=== PATIENT | male | born 1930 | race Caucasian/White ===

== ENCOUNTER 2017-01-04 20:22 | Inpatient (IN) | payer MEDICARE, BC ==
--- NOTE | 2017-01-04 20:52 | EDM.PDOC ---
ED HPI GENERAL MEDICAL PROBLEM - General Chief Complaint: General Stated Complaint: AM Time Seen by Provider: 01/04/17 20:35 Source of Information: Reports: Patient, EMS, prison records History Limitations: Reports: No limitations - History of Present Illness INITIAL COMMENTS - FREE TEXT/NARRATIVE: This 86 yo male patient was brought to the ED by [facility] due to a low blood pressure (66/44), increased shortness of breath (oxygen saturation was 90% on 5 lpm) and increased weakness. The patient reports his weakness and shortness of breath seems to have gotten worse yesterday. According to the ambulance, the patient's family wanted the patient to be brought to the ED. Onset: gradual Duration: Day(s): (2), Constant, Getting worse Location: Reports: chest (shortness of breath), generalized Quality: Reports: Other Severity: moderate Improves with: Reports: None Worsens with: Reports: None Associated Symptoms: Reports: shortness of breath, weakness Treatments CHEF'S ASSISTANT: Reports: Breathing treatments (by EMS enroute to hospital) Right Knee Pain Score (Numeric/FACES): 4 - Related Data Allergies Allergy/AdvReac Type Severity Reaction Status Date / Time roflumilast [From [facility]] Allergy Cannot Verified 01/04/17 20:31 Remember theophylline Allergy Cannot Verified 01/04/17 20:31 Remember Home Meds: Home Meds Albuterol [Ventolin HFA] 2 puff INH Q4H PRN 04/27/14 [History] Budesonide [Pulmicort] 0.5 mg IH BID 04/27/14 [History] Cholecalciferol (Vitamin D3) [Vitamin D3] 1,000 units PO DAILY 04/27/14 [History ] Formoterol [Perforomist] 20 mcg NEB BID 04/27/14 [History] Gabapentin [Neurontin] 300 mg PO BEDTIME 04/27/14 [History] Multivitamin [Multivitamins] 1 each PO DAILY 04/27/14 [History] Nitroglycerin [Nitrostat] 0.4 mg SL ASDIRECTED PRN 04/27/14 [History] Simvastatin [Zocor] 40 mg PO BEDTIME 04/27/14 [History] Acetaminophen [Tylenol] 650 mg PO Q4HR PRN 04/05/15 [History] Aspirin [Ecotrin] 81 mg PO DAILY 04/05/15 [History] Ferrous Sulfate 325 mg PO WITHBREAKFAST 04/05/15 [History] Pantoprazole [Protonix] 40 mg PO ACBREAKFAST 04/05/15 [History] Furosemide 40 mg PO BID 10/20/16 [History] Glimepiride 1 mg PO WITHBREAKFAST 10/20/16 [History] Albuterol/Ipratropium [DuoNeb 3.0-0.5 MG/3 ML] 3 ml NEB QIDRT PRN #120 neb 12/08 [Rx] Escitalopram [Lexapro] 10 mg PO DAILY #30 tablet 12/08/16 [Rx] Lisinopril [Prinivil] 5 mg PO DAILY #30 tablet 12/08/16 [Rx] Glucagon HCl 1 mg IM ASDIRECTED PRN 12/11/16 [History] Magnesium Hydroxide [Milk of Magnesia] 10 ml PO DAILY PRN 12/11/16 [History] Potassium Chloride [Klor-Con 10] 10 meq PO TID 12/11/16 [History] Insulin Aspart [NovoLOG] 8 unit SUBCUT TIDAC #1 pen 12/15/16 [Rx] Insulin Detemir [Levemir] 15 unit SUBCUT BEDTIME #1 pen 12/15/16 [Rx] LORazepam [Ativan] 0.5 mg PO ASDIRECTED PRN 01/04/17 [History] predniSONE [Prednisone] 5 mg PO DAILY 01/04/17 [History] Past Medical History HEENT History: Reports: Hard of hearing, Impaired vision Other HEENT History: wears glasses Cardiovascular History: Reports: CAD, Heart Failure, High cholesterol, Hypertension Respiratory History: Reports: Asthma, COPD Gastrointestinal History: Reports: GERD, GI bleed Genitourinary History: Reports: BPH, Prostate disorder Other Genitourinary History: has indwelling catheter Musculoskeletal History: Reports: Osteoarthritis Neurological History: Reports: Neuropathy, peripheral Psychiatric History: Reports: None Endocrine/Metabolic History: Reports: Diabetes, type II, Obesity/BMI 30+ Hematologic History: Reports: Anemia Immunologic History: Reports: None Oncologic (Cancer) History: Reports: Prostate Dermatologic History: Reports: None - Infectious Disease History Infectious Disease History: Reports: Chicken pox, Measles, Mumps - Past Surgical History Head Surgeries/Procedures: Reports: None Male Surgical History: Reports: TURP-Transurethral resection of prostate Musculoskeletal Surgical History: Reports: Hip replacement, Shoulder surgery Other Musculoskeletal Surgeries/Procedures:: 2 new hips Social & Family History - Family History Family Medical History: Noncontributory - Tobacco Use Smoking Status *Q: Former Smoker Years of Tobacco use: 40 Packs/Tins Daily: 1 Used Tobacco, but Quit: Yes Month Tobacco Last Used: November Second Hand Smoke Exposure: No - Caffeine Use Caffeine Use: Reports: Coffee Other Caffeine Use: 2 or more - Alcohol Use Days Per Week of Alcohol Use: 1 Number of Drinks Per Day: 1 Total Drinks Per Week: 1 - Recreational Drug Use Recreational Drug Use: No - Living Situation & Occupation Living situation: Reports: , alone Occupation: retired ED ROS GENERAL - Review of Systems Review Of Systems: ROS reveals no pertinent complaints other than HPI. ED EXAM, GENERAL - Physical Exam Exam: See Below Exam Limited By: No limitations General Appearance: alert, WD/WN, moderate distress Eye Exam: bilateral eye: EOMI, normal inspection, PERRL Ears: normal external exam, normal canal, hearing grossly normal, normal TMs Nose: normal inspection, normal mucosa, no blood Throat/Mouth: Normal inspection, Normal lips, Normal teeth, Normal gums, Normal oropharynx, Normal voice, No airway compromise Head: atraumatic, normocephalic Neck: normal inspection, supple, non-tender, full range of motion Respiratory/Chest: decreased breath sounds, rhonchi (diffuse) Cardiovascular: normal peripheral pulses, regular rate, rhythm, no edema, no gallop, no JVD, no murmur, no rub GI/Abdominal: normal bowel sounds, soft, non tender, no organomegaly, no distention, no abnormal bruit, no mass (Male) Exam: Deferred Rectal (Males) Exam: Deferred Back Exam: normal inspection, full range of motion, NT Extremities: normal inspection, normal range of motion, non-tender, normal capillary refill, no pedal edema Neurological: alert, oriented, CN II-XII intact, normal cognition, normal gait, normal reflexes, no motor/sensory deficits Psychiatric: normal affect, normal mood Skin Exam: Warm, Dry, Intact, Normal color, No rash Lymphatic: no adenopathy Course - Vital Signs Last Recorded V/S: Last Vital Signs Temp 36.3 C 01/04/17 20:23 Pulse 96 01/04/17 21:19 Resp 20 01/04/17 21:19 BP 88/44 L 01/04/17 21:19 Pulse Ox 92 L 01/04/17 21:19 - Orders/Labs/Meds Orders: Active Orders 24 hr Category Date Time Status CBC WITH AUTO DIFF [HEME] Stat Lab 01/04/17 20:45 Results CULTURE BLOOD [BC] Stat Lab 01/04/17 20:45 Received CULTURE BLOOD [BC] Stat Lab 01/04/17 21:01 Ordered MANUAL DIFFERENTIAL QA/NC [HEME] Stat Lab 01/04/17 20:45 Results Levofloxacin/Dextrose 5%-Water [Levaquin in D5W 500 MG/ Med 01/04/17 21:20 Ordered 100 ML] 500 mg Premix Bag 1 bag IV ONETIME Piperacillin/Tazobactam [Zosyn] 3.375 gm Med 01/04/17 21:20 Ordered Sodium Chloride 0.9% [Normal Saline] 100 ml IV ONETIME Vancomycin 1.5 gm Med 01/04/17 21:20 Ordered Sodium Chloride 0.9% [Normal Saline] 500 ml IV ONETIME Labs: Laboratory Tests 01/04/17 01/04/17 01/04/17 Range/Units 20:45 20:45 20:45 WBC 16.2 H (5.0-10.0) 10^3/uL RBC 3.62 L (4.6-6.2) 10^6/uL Hgb 9.8 L (14.0-18.0) g/dL Hct 32.6 L (40.0-54.0) % MCV 90.1 (80-100) fL MCH 27.1 (27.0-34.0) pg MCHC 30.1 L (33.0-35.0) g/dL Plt Count 276 (150-450) 10^3/uL Neut % (Auto) 76.7 H (42.2-75.2) % Lymph % (Auto) 17.0 L (20.5-50.1) % [place] % (Auto) 6.1 (2-8) % Eos % (Auto) 0.1 L (1.0-3.0) % Baso % (Auto) 0.1 (0.0-1.0) % Add Manual Diff Yes Sodium 136 (135-145) mmol/L Potassium 4.5 (3.6-5.0) mmol/L Chloride 95 L (101-111) mmol/L Carbon Dioxide 33.0 H (21.0-31.0) mmol/L Anion Gap 12.5 BUN 42 H (7-18) mg/dL Creatinine 1.4 H (0.6-1.3) mg/dL Est Cr Clr Drug Dosing TNP Estimated GFR (MDRD) 48 BUN/Creatinine Ratio 30.00 Glucose 107 H (74-105) mg/dL Lactic Acid 1.9 (0.5-2.2) mmol/L Calcium 8.8 (8.4-10.2) mg/dl Total Bilirubin 0.5 (0.2-1.0) mg/dL AST 39 (10-42) IU/L ALT 30 (10-60) IU/L Alkaline Phosphatase 74 (42-121) IU/L Total Protein 6.6 L (6.7-8.2) g/dl Albumin 2.4 L (3.2-5.5) g/dl Globulin 4.2 Albumin/Globulin Ratio 0.57 Departure - Departure Time of Disposition: 21:23 Disposition: Admitted As Inpatient 64 Condition: serious Clinical Impression: Pneumonia Qualifiers: Pneumonia type: due to unspecified organism Laterality: bilateral Lung location : lower lobe of lung Qualified Code(s): J18.9 - Pneumonia, unspecified organism Forms: ED Department Discharge Care Plan Goals: Discussed the examination, history, lab and x-ray results with Dr. Banegas ( Hospitalist). Dr. Banegas accepted the patient for continued evaluation and management as an acute inpatient at [facility] in [place]. - My Orders Last 24 Hours: My Active Orders 01/04/17 20:45 CBC WITH AUTO DIFF [HEME] Stat CULTURE BLOOD [BC] Stat MANUAL DIFFERENTIAL QA/NC [HEME] Stat 01/04/17 21:01 CULTURE BLOOD [BC] Stat 01/04/17 21:20 Levofloxacin/Dextrose 5%-Water [Levaquin in D5W 500 MG/100 ML] 500 mg Premix Bag 1 bag IV ONETIME Piperacillin/Tazobactam [Zosyn] 3.375 gm Sodium Chloride 0.9% [Normal Saline] 100 ml IV ONETIME Vancomycin 1.5 gm Sodium Chloride 0.9% [Normal Saline] 500 ml IV ONETIME - Assessment/Plan Last 24 Hours: My Active Orders 01/04/17 20:45 CBC WITH AUTO DIFF [HEME] Stat CULTURE BLOOD [BC] Stat MANUAL DIFFERENTIAL QA/NC [HEME] Stat 01/04/17 21:01 CULTURE BLOOD [BC] Stat 01/04/17 21:20 Levofloxacin/Dextrose 5%-Water [Levaquin in D5W 500 MG/100 ML] 500 mg Premix Bag 1 bag IV ONETIME Piperacillin/Tazobactam [Zosyn] 3.375 gm Sodium Chloride 0.9% [Normal Saline] 100 ml IV ONETIME Vancomycin 1.5 gm Sodium Chloride 0.9% [Normal Saline] 500 ml IV ONETIME
[2017-01-04 21:12] LABS: CHLORIDE,CL 95 mmol/L (101-111); SODIUM,NA 136 mmol/L (135-145)
[2017-01-04] MEDS ORDERED: Piperacillin/Tazobactam 3.375 GM in Sodium Chloride 0.9% 100 ML IV ONE (21:20)
[2017-01-04] MEDS ORDERED: Levofloxacin/Dextrose 5%-Water 500 MG in Premix Bag 1 BAG IV ONE (21:20)
[2017-01-04] MEDS ORDERED: Vancomycin 1.5 GM in Sodium Chloride 0.9% 500 ML IV ONE (21:20)
[2017-01-04] MEDS ORDERED: Docusate Sodium 100 MG Cap PO PRN (22:11)
[2017-01-04] MEDS ORDERED: Ondansetron 4 MG Tab.DIS PO PRN (22:11)
[2017-01-04] MEDS ORDERED: Ondansetron 4 MG/2 ML SDV IVPUSH PRN (22:11)
[2017-01-04] MEDS ORDERED: Zolpidem 5 MG Tab PO PRN (22:11)
[2017-01-04] MEDS ORDERED: Sodium Chloride 0.9% 500 ML IV SCH (22:30)
[2017-01-04] MEDS ORDERED: Albumin 25% 12.5 GM/50 ML BAG IV ONE (22:42)
--- NOTE | 2017-01-04 22:48 | PCM.HP ---
H&P History of Present Illness - General Date of Service: 01/04/17 Admit Problem/Dx: Admission Diagnosis/Problem Admission Diagnosis/Problem Hypotension, acute on chronic hypoxemic respiratory failure Source of Information: Patient, Family (son), Other ([facility] [employer]) - History of Present Illness Initial Comments - Free Text/Narative: the patient is an 86-year-old gentleman with a history of COPD, chronic hypoxemic respiratory failure, home oxygen and steroid therapy, CHF, recurrent pleural effusion, recurrent pneumonia. [facility]. [facility] and today he was noted to require higher doses of oxygen to keep his saturations above 90%, noted to have severe hypotension. The patient was brought into the hospital emergency room. He is complaining of cough, sputum production, chest pain with cough. No fever, no chills. No diarrhea, has chronic Pichardo catheter. Normal abdominal pain, Right Knee Pain Score (Numeric/FACES): 4 - Related Data Allergies/Adverse Reactions: Allergies Allergy/AdvReac Type Severity Reaction Status Date / Time roflumilast [From [facility]] Allergy Cannot Verified 01/04/17 20:31 Remember theophylline Allergy Cannot Verified 01/04/17 20:31 Remember Home Medications: Home Meds Albuterol [Ventolin HFA] 2 puff INH Q4H PRN 04/27/14 [History] Budesonide [Pulmicort] 0.5 mg IH BID 04/27/14 [History] Cholecalciferol (Vitamin D3) [Vitamin D3] 1,000 units PO DAILY 04/27/14 [History ] Formoterol [Perforomist] 20 mcg NEB BID 04/27/14 [History] Gabapentin [Neurontin] 300 mg PO BEDTIME 04/27/14 [History] Multivitamin [Multivitamins] 1 each PO DAILY 04/27/14 [History] Nitroglycerin [Nitrostat] 0.4 mg SL ASDIRECTED PRN 04/27/14 [History] Simvastatin [Zocor] 40 mg PO BEDTIME 04/27/14 [History] Acetaminophen [Tylenol] 650 mg PO Q4HR PRN 04/05/15 [History] Aspirin [Ecotrin] 81 mg PO DAILY 04/05/15 [History] Ferrous Sulfate 325 mg PO WITHBREAKFAST 04/05/15 [History] Pantoprazole [Protonix] 40 mg PO ACBREAKFAST 04/05/15 [History] Furosemide 40 mg PO BID 10/20/16 [History] Glimepiride 1 mg PO WITHBREAKFAST 10/20/16 [History] Albuterol/Ipratropium [DuoNeb 3.0-0.5 MG/3 ML] 3 ml NEB QIDRT PRN #120 neb 12/08 [Rx] Escitalopram [Lexapro] 10 mg PO DAILY #30 tablet 12/08/16 [Rx] Lisinopril [Prinivil] 5 mg PO DAILY #30 tablet 12/08/16 [Rx] Glucagon HCl 1 mg IM ASDIRECTED PRN 12/11/16 [History] Magnesium Hydroxide [Milk of Magnesia] 10 ml PO DAILY PRN 12/11/16 [History] Potassium Chloride [Klor-Con 10] 10 meq PO TID 12/11/16 [History] Insulin Aspart [NovoLOG] 8 unit SUBCUT TIDAC #1 pen 12/15/16 [Rx] Insulin Detemir [Levemir] 15 unit SUBCUT BEDTIME #1 pen 12/15/16 [Rx] LORazepam [Ativan] 0.5 mg PO ASDIRECTED PRN 01/04/17 [History] predniSONE [Prednisone] 5 mg PO DAILY 01/04/17 [History] Past Medical History HEENT History: Reports: Hard of hearing, Impaired vision Other HEENT History: wears glasses Cardiovascular History: Reports: CAD, Heart Failure, High cholesterol, Hypertension Respiratory History: Reports: Asthma, COPD Gastrointestinal History: Reports: GERD, GI bleed Genitourinary History: Reports: BPH, Prostate disorder Other Genitourinary History: has indwelling catheter Musculoskeletal History: Reports: Osteoarthritis Neurological History: Reports: Neuropathy, peripheral Psychiatric History: Reports: None Endocrine/Metabolic History: Reports: Diabetes, type II, Obesity/BMI 30+ Hematologic History: Reports: Anemia Immunologic History: Reports: None Oncologic (Cancer) History: Reports: Prostate Dermatologic History: Reports: None - Infectious Disease History Infectious Disease History: Reports: Chicken pox, Measles, Mumps - Past Surgical History Head Surgeries/Procedures: Reports: None Male Surgical History: Reports: TURP-Transurethral resection of prostate Musculoskeletal Surgical History: Reports: Hip replacement, Shoulder surgery Other Musculoskeletal Surgeries/Procedures:: 2 new hips Social & Family History - Family History Family Medical History: Noncontributory - Tobacco Use Smoking Status *Q: Former Smoker Years of Tobacco use: 40 Packs/Tins Daily: 1 Used Tobacco, but Quit: Yes Month Tobacco Last Used: November Second Hand Smoke Exposure: No - Caffeine Use Caffeine Use: Reports: Coffee Other Caffeine Use: 2 or more - Alcohol Use Days Per Week of Alcohol Use: 1 Number of Drinks Per Day: 1 Total Drinks Per Week: 1 - Recreational Drug Use Recreational Drug Use: No - Living Situation & Occupation Living situation: Reports: , alone Occupation: retired H&P Review of Systems - Review of Systems: Review Of Systems: See Below General: Reports: malaise, weakness, fatigue. Denies: fever, chills Pulmonary: Reports: shortness of breath, cough, sputum. Denies: wheezing, pleuritic chest pain Cardiovascular: Reports: chest pain (with cough), dyspnea on exertion. Denies: edema Gastrointestinal: Denies: Abdominal pain Genitourinary: Reports: other (has catheter). Denies: dysuria Psychiatric: Reports: depression, anxiety. Denies: confusion Neurological: Denies: confusion Exam - Exam Exam: See Below - Vital Signs Vital Signs: Last Vital Signs Temp 36.3 C 01/04/17 20:23 Pulse 96 01/04/17 21:19 Resp 20 01/04/17 21:19 BP 88/44 L 01/04/17 21:19 Pulse Ox 92 L 01/04/17 21:19 Weight: 77.111 kg - Exam Quality Assessment: supplemental oxygen General: alert, oriented, cooperative Lungs: Decreased breath sounds, Rhonchi (bibasilar). No: Wheezing Cardiovascular: regular rate, regular rhythm Abdomen: normal bowel sounds Extremities: normal inspection. No: edema Skin: warm, dry Neuro Extensive - Mental Status: alert, oriented x3, normal cognition Psychiatric: alert, normal affect, normal mood - Patient Data Result Diagrams: 01/04/17 20:45 01/04/17 20:45 Imaging Impressions last 24 hrs: chest x-ray per my reading shows bilateral pleural effusion and atelectasis *Q Meaningful Use (ADM) - VTE *Q VTE Criteria *Q: - Stroke *Q Stroke Criteria *Q: - AMI *Q AMI Criteria *Q: - Problem List (1) Pneumonia SNOMED Code(s): 318874698 ICD Code: J18.9 - PNEUMONIA, UNSPECIFIED ORGANISM Status: Acute Current Visit: Yes Qualifiers: Pneumonia type: due to unspecified organism Laterality: bilateral Lung location: lower lobe of lung Qualified Code(s): J18.9 - Pneumonia, unspecified organism (2) Acute and chronic respiratory failure SNOMED Code(s): 82903474, 56167353 ICD Code: J96.20 - ACUTE AND CHR RESP FAILURE, UNSP W HYPOXIA OR HYPERCAPNIA Status: Acute Current Visit: No Qualifiers: Respiratory failure complication: hypoxia Qualified Code(s): J96.21 - Acute and chronic respiratory failure with hypoxia (3) Acute exacerbation of chronic obstructive pulmonary disease SNOMED Code(s): 525850765 ICD Code: J44.1 - CHRONIC OBSTRUCTIVE PULMONARY DISEASE W (ACUTE) EXACERBATION Status: Acute Current Visit: No (4) Hypotension, Low blood pressure SNOMED Code(s): 58680093 ICD Code: I95.9 - HYPOTENSION, UNSPECIFIED Status: Acute Current Visit: No (5) Pneumonia SNOMED Code(s): 880357546 ICD Code: J18.9 - PNEUMONIA, UNSPECIFIED ORGANISM Status: Acute Current Visit: No Qualifiers: Pneumonia type: due to unspecified organism Laterality: left Lung location: lower lobe of lung Qualified Code(s): J18.9 - Pneumonia, unspecified organism (6) Sepsis SNOMED Code(s): 08605265 ICD Code: A41.9 - SEPSIS, UNSPECIFIED ORGANISM Status: Acute Current Visit: No Qualifiers: Sepsis type: sepsis due to unspecified organism Qualified Code(s): A41.9 - Sepsis, unspecified organism (7) Hypoxemia SNOMED Code(s): 463280018 ICD Code: R09.02 - HYPOXEMIA Status: Chronic Priority: Medium Current Visit: No Problem List Initiated/Reviewed/Updated: Yes Orders Last 24hrs: Active Orders 24 hr Category Date Time Status Antiembolic Devices [RC] PER UNIT ROUTINE Care 01/04/17 22:12 Active Glucose [Blood Glucose Check, Bedside] [RC] QIDACANDBED Care 01/04/17 22:06 Active Oxygen Therapy [RC] PRN Care 01/04/17 22:11 Active Peripheral IV Care [RC] . DIRECTED Care 01/04/17 22:12 Active Up With Assistance [RC] ASDIRECTED Care 01/04/17 22:11 Active VTE/DVT Education [RC] PER UNIT ROUTINE Care 01/04/17 22:11 Active Vital Signs [RC] Q4H Care 01/04/17 22:11 Active Regular Diet [DIET] Diet 01/04/17 Breakfast Active BASIC METABOLIC PANEL,BMP [CHEM] AM Lab 01/05/17 05:15 Ordered CBC WITH AUTO DIFF [HEME] AM Lab 01/05/17 05:15 Ordered CULTURE SPUTUM + SMEAR [RM] Stat Lab 01/04/17 21:53 Uncollected Acetaminophen [Tylenol] Med 01/04/17 22:11 Active 650 mg PO Q4H PRN Albumin 25% [Flexbumin 25%] Med 01/04/17 22:42 Ordered 12.5 gm in 50 ml IV ONETIME Albuterol/Ipratropium [DuoNeb 3.0-0.5 MG/3 ML] Med 01/04/17 21:56 Active 3 ml NEB QIDRT PRN Aspirin [Ecotrin] Med 01/05/17 09:00 Active 81 mg PO DAILY Budesonide [Pulmicort] Med 01/05/17 09:00 Active 0.5 mg INH BID Cholecalciferol (Vitamin D3) [Vitamin D3] Med 01/05/17 09:00 Active 1,000 units PO DAILY Docusate Sodium [Colace] Med 01/04/17 22:11 Active 100 mg PO BID PRN Escitalopram [Lexapro] Med 01/05/17 09:00 Active 10 mg PO DAILY Ferrous Sulfate Med 01/05/17 08:00 Active 325 mg PO WITHBREAKFAST Formoterol [Perforomist] Med 01/05/17 09:00 Active 20 mcg NEB BID Gabapentin [Neurontin] Med 01/05/17 21:00 Active 300 mg PO BEDTIME Glimepiride [Glimepiride] Med 01/05/17 08:00 Active 1 mg PO WITHBREAKFAST Heparin Sodium Med 01/05/17 06:00 Active 5,000 units SUBCUT Q8HR Insulin Aspart [NovoLOG] Med 01/05/17 08:00 Active 8 unit SUBCUT TIDAC Insulin Aspart [NovoLOG] Med 01/05/17 07:00 Active See Protocol SUBCUT QIDACANDBED Insulin Detemir [Levemir] Med 01/05/17 21:00 Active 15 unit SUBCUT BEDTIME LORazepam [Ativan] Med 01/04/17 21:56 Active 0.5 mg PO Q4H PRN Levofloxacin/Dextrose 5%-Water [Levaquin in D5W 750 MG/ Med 01/05/17 09:00 Active 150 ML] 750 mg Premix Bag 1 bag IV DAILY Multivitamin [Multivitamins] Med 01/05/17 09:00 Active 1 each PO DAILY Ondansetron [Zofran ODT] Med 01/04/17 22:11 Active 4 mg PO Q6H PRN Ondansetron [Zofran] Med 01/04/17 22:11 Active 4 mg IVPUSH Q6H PRN Pantoprazole [Protonix] Med 01/05/17 06:00 Active 40 mg PO ACBREAKFAST Piperacillin/Tazobactam [Zosyn] 3.375 gm Med 01/05/17 04:00 Active Sodium Chloride 0.9% [Normal Saline] 100 ml IV Q6H Potassium Chloride [Klor-Con 10] Med 01/05/17 09:00 Active 10 meq PO TID Simvastatin [Zocor] Med 01/05/17 21:00 Active 40 mg PO BEDTIME Sodium Chloride 0.9% [Saline Flush] Med 01/04/17 22:11 Active 10 ml FLUSH ASDIRECTED PRN Zolpidem [Ambien] Med 01/04/17 22:11 Active 5 mg PO BEDTIME PRN methylPREDNISolone Sod Succ [Solu-MEDROL] Med 01/04/17 23:00 Active 40 mg IVPUSH Q8H Antiembolic Hose [OM.PC] Per Unit Routine Oth 01/04/17 22:12 Ordered Peripheral IV Insertion Adult [OM.PC] Routine Oth 01/04/17 22:11 Ordered Saline Lock Insert [OM.PC] Routine Oth 01/04/17 22:11 Ordered Resuscitation Status Routine Resus Stat 01/04/17 22:11 Ordered Medication Orders Acetaminophen (Tylenol) 650 mg PO Q4H PRN PRN Reason: Pain (Mild 1-3)/fever Albuterol/Ipratropium (Duoneb 3.0-0.5 Mg/3 Ml) 3 ml NEB QIDRT PRN PRN Reason: sob Aspirin (Ecotrin) 81 mg PO DAILY [place] Budesonide (Pulmicort) 0.5 mg INH BID [facility] Docusate Sodium (Colace) 100 mg PO BID PRN PRN Reason: Constipation Escitalopram Oxalate (Lexapro) 10 mg PO DAILY [facility] Ferrous Sulfate (Ferrous Sulfate) 325 mg PO WITHBREAKFAST [facility] Gabapentin (Neurontin) 300 mg PO BEDTIME [facility] Heparin Sodium (Porcine) (Heparin Sodium) 5,000 units SUBCUT Q8HR [facility] Vancomycin HCl 1.5 gm/ Sodium (Chloride) 500 mls @ 334 mls/hr IV ONETIME ONE Stop: 01/04/17 22:49 Last Admin: 01/04/17 21:37 Dose: 334 mls/hr Levofloxacin/Dextrose 750 mg/ (Premix) 150 mls @ 100 mls/hr IV DAILY [facility] Piperacillin Sod/Tazobactam (Sod 3.375 gm/ Sodium Chloride) 100 mls @ 200 mls/ hr IV Q6H [facility] Albumin Human (Flexbumin 25%) 12.5 gm in 50 mls @ 100 mls/hr IV ONETIME ONE Stop: 01/04/17 23:11 Insulin Aspart (Novolog) 8 unit SUBCUT TIDAC [facility] Insulin Aspart (Novolog) 0 unit SUBCUT QIDACANDBED [facility] PRN Reason: Protocol Insulin Detemir (Levemir) 15 unit SUBCUT BEDTIME [facility] Lorazepam (Ativan) 0.5 mg PO Q4H PRN PRN Reason: Anxiety Methylprednisolone Sodium Succinate (Solu-Medrol) 40 mg IVPUSH Q8H [facility] Non-Formulary Medication (Cholecalciferol (Vitamin D3) [Vitamin D3]) 1,000 units PO DAILY [facility] Non-Formulary Medication (Formoterol [Perforomist]) 20 mcg NEB BID [facility] Non-Formulary Medication (Glimepiride [Glimepiride]) 1 mg PO WITHBREAKFAST [facility] Non-Formulary Medication (Multivitamin [Multivitamins]) 1 each PO DAILY [facility] Ondansetron HCl (Zofran Odt) 4 mg PO Q6H PRN PRN Reason: nausea, able to take PO Ondansetron HCl (Zofran) 4 mg IVPUSH Q6H PRN PRN Reason: Nausea/Vomiting Pantoprazole Sodium (Protonix) 40 mg PO ACBREAKFAST [facility] Potassium Chloride (Klor-Con 10) 10 meq PO TID [place] Simvastatin (Zocor) 40 mg PO BEDTIME [place] Sodium Chloride (Saline Flush) 10 ml FLUSH ASDIRECTED PRN PRN Reason: Keep Vein Open Zolpidem Tartrate (Ambien) 5 mg PO BEDTIME PRN PRN Reason: Sleep Assessment/Plan Comment:: Acute on chronic hypoxemic respiratory failure likely multifactorial due to COPD , pneumonia, effusion Baseline oxygen need is about 2-3 L per minute Supplement oxygen as needed If no improvement consider thoracentesis Pneumonia with sepsis (hypotension, tachycardia, leukocytosis) POA Concern for gram-negative organisms, health care related pneumonia We'll obtain blood culture, sputum culture Treat with Zosyn, vancomycin, levofloxacin Follow culture results Acute COPD exacerbation The patient has had home oxygen and steroid use We'll give higher doses of steroids IV supplemental oxygen as needed Use DuoNeb as needed Continue Pulmicort twice a day Treat with formoterol twice a day Hypotension This might relate to dehydration, hold the Lasix This might relate to acute adrenal insufficiency, give high doses of steroid Give IV fluid bolus now stop lisinopril Has a history of hypo-albuminemia Will give albumin now Follow closely for acute CHF exacerbation Anxiety Use Ativan as needed 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
[2017-01-04] MEDS ORDERED: methylPREDNISolone Sodium Succinate 40 MG/1 ML SDV IVPUSH SCH (23:00)
[2017-01-05] MEDS: Piperacillin/Tazobactam 3.375 GM in Sodium Chloride 0.9% 100 ML IV SCH ×3 (06:34→17:51)
[2017-01-05] MEDS: Pantoprazole 40 MG Tab.CR PO SCH (06:35)
[2017-01-05] MEDS: Heparin Sodium 5,000 Units/ML Vial SUBCUT SCH ×3 (06:35→23:07)
[2017-01-05 06:45] LABS: CHLORIDE,CL 97 mmol/L (101-111); SODIUM,NA 137 mmol/L (135-145)
[2017-01-05] MEDS: methylPREDNISolone Sodium Succinate 40 MG/1 ML SDV IVPUSH SCH ×2 (08:13→16:16)
--- NOTE | 2017-01-05 08:22 | CR ---
CLINICAL HISTORY: 86-year-old male with persistent shortness of breath. INTERPRETATION: Poor inspiratory effort and chronic bibasilar atelectasis, underlying dependent pleu ral fluid possible but cardiac silhouette remains unchanged and no new cephalization of flow or sign s of alveolar edema when compared to 12 December 2016 exam. No new lung mass or focal lobar pneumonia. CONCLUSION: Chronic abnormalities both lung bases. (See above).
[2017-01-05] MEDS ORDERED: Aspirin 81 MG Tab.Chew ONE (08:31)
[2017-01-05] MEDS: Insulin Aspart 100 Units/ML 3 ML Pen SUBCUT SCH ×7 (08:33→23:08)
[2017-01-05] MEDS: Glimepiride 2 MG Tab PO SCH (08:49)
[2017-01-05] MEDS: Ferrous Sulfate 325 MG Tab PO SCH (08:50)
[2017-01-05] MEDS: Multivitamins,Therapeutic Tab PO SCH (08:50)
[2017-01-05] MEDS: Escitalopram 10 MG Tab PO SCH (08:51)
[2017-01-05] MEDS: Cholecalciferol (Vitamin D3) 400 Unit Tab PO SCH (08:51)
[2017-01-05] MEDS ORDERED: Furosemide 40 MG Tab PO SCH (09:00)
[2017-01-05] MEDS ORDERED: Levofloxacin/Dextrose 5%-Water 750 MG in Premix Bag 1 BAG IV SCH (09:00)
[2017-01-05] MEDS ORDERED: Lisinopril 5 MG Tab PO SCH (09:00)
[2017-01-05] MEDS ORDERED: Aspirin 325 MG Tab.EC PO SCH (09:00)
[2017-01-05] MEDS ORDERED: Potassium Chloride 10 MEQ Tab.ER PO SCH (09:00)
[2017-01-05] MEDS: Budesonide 0.5 MG/2 ML Neb Susp INH SCH ×4 (10:23→17:51)
[2017-01-05] MEDS: Aspirin 81 MG Tab.EC PO SCH (10:25)
--- NOTE | 2017-01-05 10:41 | PCM.PN ---
- General Info Date of Service: 01/05/17 Admission Dx/Problem (Free Text): Admission Diagnosis/Problem Admission Diagnosis/Problem Hypotension, acute on chronic hypoxemic respiratory failure Subjective Update: he is feeling somewhat better, shortness of breath still present. There is no associated chest pain, no nausea or vomiting, no abdominal pain. - Review of Systems General: Reports: weakness. Denies: fever Pulmonary: Reports: shortness of breath, wheezing Neurological: Denies: confusion - Patient Data Vitals - most recent: Last Vital Signs Temp 36.3 C 01/05/17 07:00 Pulse 78 01/05/17 07:00 Resp 18 01/05/17 07:00 BP 111/62 01/05/17 07:00 Pulse Ox 93 L 01/05/17 07:00 Weight - most recent: 76.294 kg I&O - last 24 hours: Intake & Output 01/04/17 01/05/17 01/05/17 22:59 06:59 14:59 Intake Total 1050 100 Output Total 300 575 Balance -300 475 100 Lab Results last 24 hrs: Laboratory Results - last 24 hr 01/05/17 01/05/17 01/05/17 Range/Units 06:11 06:11 07:31 WBC 10.5 H (5.0-10.0) 10^3/uL RBC 3.49 L (4.6-6.2) 10^6/uL Hgb 9.5 L (14.0-18.0) g/dL Hct 31.3 L (40.0-54.0) % MCV 89.7 (80-100) fL MCH 27.2 (27.0-34.0) pg MCHC 30.4 L (33.0-35.0) g/dL Plt Count 245 (150-450) 10^3/uL Neut % (Auto) 92.5 H (42.2-75.2) % Lymph % (Auto) 4.1 L (20.5-50.1) % Haines % (Auto) 3.3 (2-8) % Eos % (Auto) 0.0 L (1.0-3.0) % Baso % (Auto) 0.1 (0.0-1.0) % Add Manual Diff Yes Neutrophils % (Manual) 89 % Band Neutrophils % 1 % Lymphocytes % (Manual) 7 % Monocytes % (Manual) 3 % Toxic Granulation 1+ slight Platelet Estimate Adequate Polychromasia 1+ slight Basophilic Stippling 1+ slight Sodium 137 (135-145) mmol/L Potassium 4.4 (3.6-5.0) mmol/L Chloride 97 L (101-111) mmol/L Carbon Dioxide 31.0 (21.0-31.0) mmol/L Anion Gap 13.4 BUN 35 H (7-18) mg/dL Creatinine 1.1 (0.6-1.3) mg/dL Est Cr Clr Drug Dosing 45.66 mL/min Estimated GFR (MDRD) > 60 Glucose 83 (74-105) mg/dL POC Glucose 109 (83-110) mg/dl Calcium 8.7 (8.4-10.2) mg/dl Troponin I 0.05 H* (0.00-0.02) ng/ml Med Orders - Current: Current Medications Acetaminophen (Tylenol) 650 mg PO Q4H PRN PRN Reason: Pain (Mild 1-3)/fever Albuterol/Ipratropium (Duoneb 3.0-0.5 Mg/3 Ml) 3 ml NEB QIDRT PRN PRN Reason: sob Aspirin (Halfprin) 81 mg PO DAILY [facility] Last Admin: 01/05/17 10:25 Dose: Not Given Budesonide (Pulmicort) 0.5 mg INH BIDRT [facility] Cholecalciferol (Vitamin D3) 1,000 units PO DAILY [facility] Last Admin: 01/05/17 08:51 Dose: 1,000 units Docusate Sodium (Colace) 100 mg PO BID PRN PRN Reason: Constipation Escitalopram Oxalate (Lexapro) 10 mg PO DAILY [facility] Last Admin: 01/05/17 08:51 Dose: 10 mg Ferrous Sulfate (Ferrous Sulfate) 325 mg PO WITHBREAKFAST [facility] Last Admin: 01/05/17 08:50 Dose: 325 mg Furosemide (Lasix) 20 mg PO BIDDIURETIC [facility] Gabapentin (Neurontin) 300 mg PO BEDTIME [facility] Glimepiride (Amaryl) 1 mg PO WITHBREAKFAST [facility] Last Admin: 01/05/17 08:49 Dose: 1 mg Heparin Sodium (Porcine) (Heparin Sodium) 5,000 units SUBCUT Q8HR [facility] Last Admin: 01/05/17 06:35 Dose: 5,000 units Piperacillin Sod/Tazobactam (Sod 3.375 gm/ Sodium Chloride) 100 mls @ 200 mls/ hr IV Q6H [facility] Last Infusion: 01/05/17 07:16 Dose: Infused Levofloxacin/Dextrose 750 mg/ (Premix) 150 mls @ 100 mls/hr IV Q24H [facility] Insulin Aspart (Novolog) 8 unit SUBCUT TIDAC [facility] Last Admin: 01/05/17 08:36 Dose: 8 units Insulin Aspart (Novolog) 0 unit SUBCUT QIDACANDBED [facility] PRN Reason: Protocol Last Admin: 01/05/17 08:33 Dose: Not Given Insulin Detemir (Levemir) 15 unit SUBCUT BEDTIME [facility] Lorazepam (Ativan) 0.5 mg PO Q4H PRN PRN Reason: Anxiety Methylprednisolone Sodium Succinate (Solu-Medrol) 40 mg IVPUSH Q8H [facility] Last Admin: 01/05/17 08:13 Dose: 40 mg Multivitamins (Thera) 1 each PO DAILY [facility] Last Admin: 01/05/17 08:50 Dose: 1 each (Formoterol [ Perforomist] 20 Mcg) Own Med 20 mcg NEB BID [facility] Ondansetron HCl (Zofran Odt) 4 mg PO Q6H PRN PRN Reason: nausea, able to take PO Ondansetron HCl (Zofran) 4 mg IVPUSH Q6H PRN PRN Reason: Nausea/Vomiting Pantoprazole Sodium (Protonix) 40 mg PO ACBREAKFAST [facility] Last Admin: 01/05/17 06:35 Dose: 40 mg Potassium Chloride (Klor-Con 10) 10 meq PO TIDMEALS [facility] Simvastatin (Zocor) 40 mg PO BEDTIME [facility] Sodium Chloride (Saline Flush) 10 ml FLUSH ASDIRECTED PRN PRN Reason: Keep Vein Open Zolpidem Tartrate (Ambien) 5 mg PO BEDTIME PRN PRN Reason: Sleep Discontinued Medications Aspirin (Ecotrin) 81 mg PO DAILY [facility] Last Admin: 01/05/17 10:34 Dose: Not Given Aspirin (Aspirin) Confirm Administered Dose 81 mg .ROUTE .STK-MED ONE Stop: 01/05/17 08:32 Last Admin: 01/05/17 10:33 Dose: 81 mg Budesonide (Pulmicort) 0.5 mg INH BID [facility] Last Admin: 01/05/17 10:23 Dose: Not Given Furosemide (Lasix) 40 mg PO BID [facility] Levofloxacin/Dextrose 500 mg/ (Premix) 100 mls @ 100 mls/hr IV ONETIME ONE Stop: 01/04/17 22:19 Last Admin: 01/04/17 23:13 Dose: 100 mls/hr Piperacillin Sod/Tazobactam (Sod 3.375 gm/ Sodium Chloride) 100 mls @ 200 mls/ hr IV ONETIME ONE Stop: 01/04/17 21:49 Last Admin: 01/05/17 00:18 Dose: 200 mls/hr Vancomycin HCl 1.5 gm/ Sodium (Chloride) 500 mls @ 334 mls/hr IV ONETIME ONE Stop: 01/04/17 22:49 Last Admin: 01/04/17 21:37 Dose: 334 mls/hr Levofloxacin/Dextrose 750 mg/ (Premix) 150 mls @ 100 mls/hr IV DAILY [facility] Sodium Chloride (Normal Saline) 500 mls @ 500 mls/hr IV .BOLUS [facility] Albumin Human (Flexbumin 25%) 12.5 gm in 50 mls @ 100 mls/hr IV ONETIME ONE Stop: 01/04/17 23:11 Last Admin: 01/05/17 00:53 Dose: 100 mls/hr Lisinopril (Prinivil) 5 mg PO DAILY [facility] Methylprednisolone Sodium Succinate (Solu-Medrol) 40 mg IVPUSH Q8H [facility] Last Admin: 01/05/17 00:15 Dose: 40 mg Piperacillin Sod/Tazobactam Sod (Zosyn) Confirm Administered Dose 3.375 gm .ROUTE .STK-MED ONE Stop: 01/05/17 06:09 Last Admin: 01/05/17 06:26 Dose: Not Given Potassium Chloride (Klor-Con 10) 10 meq PO TID [facility] Last Admin: 01/05/17 08:51 Dose: 10 meq Vancomycin HCl (Pharmacy To Dose - Vancomycin) 1 dose .XX ONETIME ONE Stop: 01/04/17 21:57 Last Admin: 01/04/17 23:19 Dose: Not Given - Exam Quality Assessment: supplemental oxygen General: alert, oriented Neck: supple Lungs: Decreased breath sounds, Rhonchi, Wheezing Cardiovascular: regular rate Abdomen: bowel sounds present, soft, no tenderness Extremities: edema (trace) Skin: warm, dry Neurological: no new focal deficit Psy/Mental Status: alert, normal affect, normal mood - Problem List & Annotations (1) Pneumonia SNOMED Code(s): 659955447 Code(s): J18.9 - PNEUMONIA, UNSPECIFIED ORGANISM Status: Acute Current Visit: Yes Qualifiers: Pneumonia type: due to unspecified organism Laterality: bilateral Lung location: lower lobe of lung Qualified Code(s): J18.9 - Pneumonia, unspecified organism (2) Acute and chronic respiratory failure SNOMED Code(s): 59124525, 72930951 Code(s): J96.20 - ACUTE AND CHR RESP FAILURE, UNSP W HYPOXIA OR HYPERCAPNIA Status: Acute Current Visit: No Qualifiers: Respiratory failure complication: hypoxia Qualified Code(s): J96.21 - Acute and chronic respiratory failure with hypoxia (3) Acute exacerbation of chronic obstructive pulmonary disease SNOMED Code(s): 512542828 Code(s): J44.1 - CHRONIC OBSTRUCTIVE PULMONARY DISEASE W (ACUTE) EXACERBATION Status: Acute Current Visit: No (4) Hypotension, Low blood pressure SNOMED Code(s): 85339596 Code(s): I95.9 - HYPOTENSION, UNSPECIFIED Status: Acute Current Visit: No (5) Pneumonia SNOMED Code(s): 549916745 Code(s): J18.9 - PNEUMONIA, UNSPECIFIED ORGANISM Status: Acute Current Visit: No Qualifiers: Pneumonia type: due to unspecified organism Laterality: left Lung location: lower lobe of lung Qualified Code(s): J18.9 - Pneumonia, unspecified organism (6) Sepsis SNOMED Code(s): 23392412 Code(s): A41.9 - SEPSIS, UNSPECIFIED ORGANISM Status: Acute Current Visit : No Qualifiers: Sepsis type: sepsis due to unspecified organism Qualified Code(s): A41.9 - Sepsis, unspecified organism (7) Hypoxemia SNOMED Code(s): 900514785 Code(s): R09.02 - HYPOXEMIA Status: Chronic Priority: Medium Current Visit: No - Problem List Review Problem List Initiated/Reviewed/Updated: Yes - My Orders Last 24 Hours: My Active Orders 01/04/17 21:56 Albuterol/Ipratropium [DuoNeb 3.0-0.5 MG/3 ML] 3 ml NEB QIDRT PRN LORazepam [Ativan] 0.5 mg PO Q4H PRN 01/04/17 22:06 Glucose [Blood Glucose Check, Bedside] [RC] QIDACANDBED 01/04/17 22:11 Oxygen Therapy [RC] .PRN Up With Assistance [RC] ASDIRECTED Vital Signs [RC] 03,07,11,15,19,23 Acetaminophen [Tylenol] 650 mg PO Q4H PRN Docusate Sodium [Colace] 100 mg PO BID PRN Ondansetron [Zofran ODT] 4 mg PO Q6H PRN Ondansetron [Zofran] 4 mg IVPUSH Q6H PRN Sodium Chloride 0.9% [Saline Flush] 10 ml FLUSH ASDIRECTED PRN Zolpidem [Ambien] 5 mg PO BEDTIME PRN Peripheral IV Insertion Adult [OM.PC] Routine Saline Lock Insert [OM.PC] Routine Resuscitation Status Routine 01/04/17 22:12 Antiembolic Devices [RC] 08,20 Peripheral IV Care [RC] 08,20 Antiembolic Hose [OM.PC] Per Unit Routine 01/04/17 22:51 Communication Order [RC] 08,20 01/05/17 06:00 Heparin Sodium 5,000 units SUBCUT Q8HR Pantoprazole [Protonix] 40 mg PO ACBREAKFAST Piperacillin/Tazobactam [Zosyn] 3.375 gm Sodium Chloride 0.9% [Normal Saline] 100 ml IV Q6H 01/05/17 07:00 Insulin Aspart [NovoLOG] See Protocol SUBCUT QIDACANDBED 01/05/17 08:00 Ferrous Sulfate 325 mg PO WITHBREAKFAST Glimepiride [Amaryl] 1 mg PO WITHBREAKFAST Insulin Aspart [NovoLOG] 8 unit SUBCUT TIDAC methylPREDNISolone Sod Succ [Solu-MEDROL] 40 mg IVPUSH Q8H 01/05/17 09:00 Cholecalciferol (Vitamin D3) [Vitamin D3] 1,000 units PO DAILY Escitalopram [Lexapro] 10 mg PO DAILY Formoterol [Perforomist] 20 mcg NEB BID Multivitamins,Therapeutic [Thera] 1 each PO DAILY 01/05/17 10:15 Aspirin [Halfprin] 81 mg PO DAILY 01/05/17 12:00 Potassium Chloride [Klor-Con 10] 10 meq PO TIDMEALS 01/05/17 14:00 Furosemide [Lasix] 20 mg PO BIDDIURETIC 01/05/17 18:00 Budesonide [Pulmicort] 0.5 mg INH BIDRT 01/05/17 21:00 Gabapentin [Neurontin] 300 mg PO BEDTIME Insulin Detemir [Levemir] 15 unit SUBCUT BEDTIME Simvastatin [Zocor] 40 mg PO BEDTIME 01/05/17 23:00 Levofloxacin/Dextrose 5%-Water [Levaquin in D5W 750 MG/150 ML] 750 mg Premix Bag 1 bag IV Q24H 01/06/17 05:15 BASIC METABOLIC PANEL,BMP [CHEM] AM CBC WITH AUTO DIFF [HEME] AM 01/07/17 05:11 B-TYPE NATRIURETIC PEPTIDE,BNP [CHEM] AM - Plan Plan:: Acute on chronic hypoxemic respiratory failure likely multifactorial due to COPD , pneumonia, effusion Baseline oxygen need is about 2-3 L per minute Supplement oxygen as needed discussed the option of thoracentesis at this point the patient says she is not interested in this, would like to try to stay on medical therapy Pneumonia with sepsis (hypotension, tachycardia, leukocytosis) POA Concern for gram-negative organisms, health care related pneumonia pending blood culture, sputum culture Treat with Zosyn, vancomycin, levofloxacin Follow culture results Acute COPD exacerbation The patient has had home oxygen and chronic steroid use continue higher doses of steroids IV supplemental oxygen as needed Use DuoNeb as needed Continue Pulmicort twice a day Treat with formoterol twice a day Hypotension present on admission Improved This might relate to dehydration, was holding the Lasix not we'll restart This might relate to acute adrenal insufficiency, give high doses of steroid continue to hold lisinopril was given IV albumin Anxiety Use Ativan as needed 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 Continue Pichardo catheter Diabetes Treatment glyburide, levemir, NovoLog with meals Follow blood sugars and new supplement and insulin and hypoglycemia protocol as needed 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
[2017-01-05] MEDS: Albuterol/Ipratropium 3.0-0.5 MG/3 ML Neb Soln NEB PRN (10:45)
[2017-01-05] MEDS: Potassium Chloride 10 MEQ Tab.ER PO SCH ×2 (12:04→17:51)
[2017-01-05] MEDS: Furosemide 20 MG Tab PO SCH (13:45)
[2017-01-05] MEDS ORDERED: Insulin Detemir 100 Units/ML 3 ML Pen SUBCUT SCH (21:00)
[2017-01-05] MEDS: Simvastatin 40 MG Tab PO SCH (23:09)
[2017-01-05] MEDS: Gabapentin 300 MG Cap PO SCH (23:09)
[2017-01-05] MEDS: Levofloxacin/Dextrose 5%-Water 750 MG in Premix Bag 1 BAG IV SCH (23:10)
[2017-01-06] MEDS: methylPREDNISolone Sodium Succinate 40 MG/1 ML SDV IVPUSH SCH ×3 (00:56→18:35)
[2017-01-06] MEDS: Piperacillin/Tazobactam 3.375 GM in Sodium Chloride 0.9% 100 ML IV SCH ×4 (00:57→18:35)
[2017-01-06 06:59] LABS: CHLORIDE,CL 97 mmol/L (101-111); SODIUM,NA 136 mmol/L (135-145)
[2017-01-06] MEDS: Pantoprazole 40 MG Tab.CR PO SCH (07:02)
[2017-01-06] MEDS: Heparin Sodium 5,000 Units/ML Vial SUBCUT SCH ×3 (07:02→21:48)
[2017-01-06] MEDS: Budesonide 0.5 MG/2 ML Neb Susp INH SCH ×2 (07:15→17:59)
[2017-01-06] MEDS: Albuterol/Ipratropium 3.0-0.5 MG/3 ML Neb Soln NEB PRN ×3 (07:16→22:04)
[2017-01-06] MEDS: Insulin Aspart 100 Units/ML 3 ML Pen SUBCUT SCH ×7 (08:22→21:47)
[2017-01-06] MEDS: Glimepiride 2 MG Tab PO SCH (08:25)
[2017-01-06] MEDS: Ferrous Sulfate 325 MG Tab PO SCH (08:25)
[2017-01-06] MEDS: Potassium Chloride 10 MEQ Tab.ER PO SCH ×3 (08:26→17:16)
[2017-01-06] MEDS: Aspirin 81 MG Tab.EC PO SCH (08:26)
[2017-01-06] MEDS: Furosemide 20 MG Tab PO SCH ×2 (08:26→13:51)
[2017-01-06] MEDS: Cholecalciferol (Vitamin D3) 400 Unit Tab PO SCH (08:27)
[2017-01-06] MEDS: Multivitamins,Therapeutic Tab PO SCH (08:27)
[2017-01-06] MEDS: Escitalopram 10 MG Tab PO SCH (08:44)
[2017-01-06] MEDS: Acetaminophen 325 MG Tab PO PRN (10:11)
--- NOTE | 2017-01-06 11:06 | PCM.PN ---
- General Info Date of Service: 01/06/17 Admission Dx/Problem (Free Text): Admission Diagnosis/Problem Admission Diagnosis/Problem Hypotension, acute on chronic hypoxemic respiratory failure Subjective Update: he is feeling better, shortness of breath still present but not this severe. There is no associated chest pain, no nausea or vomiting, no abdominal pain. his oxygen need has decreased, back to his usual 3 L per minute oxygen. No fever, but still has wheezing Functional Status: Reports: pain controlled - Review of Systems General: Reports: weakness, fatigue. Denies: fever Pulmonary: Reports: shortness of breath, cough, wheezing Cardiovascular: Denies: chest pain Gastrointestinal: Denies: Abdominal pain Genitourinary: Denies: dysuria Neurological: Denies: confusion - Patient Data Vitals - most recent: Last Vital Signs Temp 36.4 C 01/06/17 07:55 Pulse 66 01/06/17 07:55 Resp 20 01/06/17 07:55 BP 115/60 01/06/17 07:55 Pulse Ox 90 L 01/06/17 07:55 Weight - most recent: 77.116 kg I&O - last 24 hours: Intake & Output 01/05/17 01/06/17 01/06/17 22:59 06:59 14:59 Intake Total 336 500 100 Output Total 1150 800 Balance -814 -300 100 Lab Results last 24 hrs: Laboratory Results - last 24 hr 01/05/17 01/05/17 01/05/17 Range/Units 11:04 16:53 20:32 WBC (5.0-10.0) 10^3/uL RBC (4.6-6.2) 10^6/uL Hgb (14.0-18.0) g/dL Hct (40.0-54.0) % MCV (80-100) fL MCH (27.0-34.0) pg MCHC (33.0-35.0) g/dL Plt Count (150-450) 10^3/uL Neut % (Auto) (42.2-75.2) % Lymph % (Auto) (20.5-50.1) % [place] % (Auto) (2-8) % Eos % (Auto) (1.0-3.0) % Baso % (Auto) (0.0-1.0) % Sodium (135-145) mmol/L Potassium (3.6-5.0) mmol/L Chloride (101-111) mmol/L Carbon Dioxide (21.0-31.0) mmol/L Anion Gap BUN (7-18) mg/dL Creatinine (0.6-1.3) mg/dL Est Cr Clr Drug Dosing mL/min Estimated GFR (MDRD) Glucose (74-105) mg/dL POC Glucose 285 H 442 H* 447 H* (83-110) mg/dl Calcium (8.4-10.2) mg/dl 01/06/17 01/06/17 01/06/17 Range/Units 06:25 06:25 07:45 WBC 8.2 (5.0-10.0) 10^3/uL RBC 3.18 L (4.6-6.2) 10^6/uL Hgb 8.6 L (14.0-18.0) g/dL Hct 28.3 L (40.0-54.0) % MCV 89.0 (80-100) fL MCH 27.0 (27.0-34.0) pg MCHC 30.4 L (33.0-35.0) g/dL Plt Count 246 (150-450) 10^3/uL Neut % (Auto) 89.0 H (42.2-75.2) % Lymph % (Auto) 7.1 L (20.5-50.1) % [place] % (Auto) 3.8 (2-8) % Eos % (Auto) 0.0 L (1.0-3.0) % Baso % (Auto) 0.1 (0.0-1.0) % Sodium 136 (135-145) mmol/L Potassium 4.3 (3.6-5.0) mmol/L Chloride 97 L (101-111) mmol/L Carbon Dioxide 30.0 (21.0-31.0) mmol/L Anion Gap 13.3 BUN 37 H (7-18) mg/dL Creatinine 1.1 (0.6-1.3) mg/dL Est Cr Clr Drug Dosing 45.66 mL/min Estimated GFR (MDRD) > 60 Glucose 329 H (74-105) mg/dL POC Glucose 302 H (83-110) mg/dl Calcium 8.5 (8.4-10.2) mg/dl Med Orders - Current: Current Medications Acetaminophen (Tylenol) 650 mg PO Q4H PRN PRN Reason: Pain (Mild 1-3)/fever Last Admin: 01/06/17 10:11 Dose: 650 mg Albuterol/Ipratropium (Duoneb 3.0-0.5 Mg/3 Ml) 3 ml NEB QIDRT PRN PRN Reason: sob Last Admin: 01/06/17 07:16 Dose: 3 ml Aspirin (Halfprin) 81 mg PO DAILY [facility] Last Admin: 01/06/17 08:26 Dose: 81 mg Budesonide (Pulmicort) 0.5 mg INH BIDRT [facility] Last Admin: 01/06/17 07:15 Dose: 0.5 mg Cholecalciferol (Vitamin D3) 1,000 units PO DAILY [facility] Last Admin: 01/06/17 08:27 Dose: 1,000 units Docusate Sodium (Colace) 100 mg PO BID PRN PRN Reason: Constipation Escitalopram Oxalate (Lexapro) 10 mg PO DAILY [facility] Last Admin: 01/06/17 08:44 Dose: 10 mg Ferrous Sulfate (Ferrous Sulfate) 325 mg PO WITHBREAKFAST [facility] Last Admin: 01/06/17 08:25 Dose: 325 mg Furosemide (Lasix) 20 mg PO BIDDIURETIC [facility] Last Admin: 01/06/17 08:26 Dose: 20 mg Gabapentin (Neurontin) 300 mg PO BEDTIME [facility] Last Admin: 01/05/17 23:09 Dose: 300 mg Glimepiride (Amaryl) 1 mg PO WITHBREAKFAST [facility] Last Admin: 01/06/17 08:25 Dose: 1 mg Heparin Sodium (Porcine) (Heparin Sodium) 5,000 units SUBCUT Q8HR [facility] Last Admin: 01/06/17 07:02 Dose: 5,000 units Piperacillin Sod/Tazobactam (Sod 3.375 gm/ Sodium Chloride) 100 mls @ 200 mls/ hr IV Q6H [facility] Last Admin: 01/06/17 07:02 Dose: 200 mls/hr Levofloxacin/Dextrose 750 mg/ (Premix) 150 mls @ 100 mls/hr IV Q24H [facility] Last Admin: 01/05/17 23:10 Dose: 100 mls/hr Insulin Aspart (Novolog) 8 unit SUBCUT TIDAC [facility] Last Admin: 01/06/17 08:23 Dose: 8 units Insulin Aspart (Novolog) 0 unit SUBCUT QIDACANDBED [facility] PRN Reason: Protocol Last Admin: 01/06/17 08:22 Dose: 8 units Insulin Detemir (Levemir) 20 unit SUBCUT BEDTIME [facility] Lorazepam (Ativan) 0.5 mg PO Q4H PRN PRN Reason: Anxiety Methylprednisolone Sodium Succinate (Solu-Medrol) 40 mg IVPUSH Q12H [facility] Multivitamins (Thera) 1 each PO DAILY [facility] Last Admin: 01/06/17 08:27 Dose: 1 each (Formoterol [ Perforomist] 20 Mcg) Own Med 20 mcg NEB BID [facility] Last Admin: 01/06/17 09:03 Dose: 20 mcg Ondansetron HCl (Zofran Odt) 4 mg PO Q6H PRN PRN Reason: nausea, able to take PO Ondansetron HCl (Zofran) 4 mg IVPUSH Q6H PRN PRN Reason: Nausea/Vomiting Pantoprazole Sodium (Protonix) 40 mg PO ACBREAKFAST [facility] Last Admin: 01/06/17 07:02 Dose: 40 mg Potassium Chloride (Klor-Con 10) 10 meq PO TIDMEALS [facility] Last Admin: 01/06/17 08:26 Dose: 10 meq Simvastatin (Zocor) 40 mg PO BEDTIME [facility] Last Admin: 01/05/17 23:09 Dose: 40 mg Sodium Chloride (Saline Flush) 10 ml FLUSH ASDIRECTED PRN PRN Reason: Keep Vein Open Zolpidem Tartrate (Ambien) 5 mg PO BEDTIME PRN PRN Reason: Sleep Discontinued Medications Aspirin (Ecotrin) 81 mg PO DAILY [facility] Last Admin: 01/05/17 10:34 Dose: Not Given Aspirin (Aspirin) Confirm Administered Dose 81 mg .ROUTE .STK-MED ONE Stop: 01/05/17 08:32 Last Admin: 01/05/17 10:33 Dose: 81 mg Budesonide (Pulmicort) 0.5 mg INH BID [facility] Last Admin: 01/05/17 10:45 Dose: 0.5 mg Furosemide (Lasix) 40 mg PO BID [facility] Levofloxacin/Dextrose 500 mg/ (Premix) 100 mls @ 100 mls/hr IV ONETIME ONE Stop: 01/04/17 22:19 Last Admin: 01/04/17 23:13 Dose: 100 mls/hr Piperacillin Sod/Tazobactam (Sod 3.375 gm/ Sodium Chloride) 100 mls @ 200 mls/ hr IV ONETIME ONE Stop: 01/04/17 21:49 Last Admin: 01/05/17 00:18 Dose: 200 mls/hr Vancomycin HCl 1.5 gm/ Sodium (Chloride) 500 mls @ 334 mls/hr IV ONETIME ONE Stop: 01/04/17 22:49 Last Admin: 01/04/17 21:37 Dose: 334 mls/hr Levofloxacin/Dextrose 750 mg/ (Premix) 150 mls @ 100 mls/hr IV DAILY [place] Sodium Chloride (Normal Saline) 500 mls @ 500 mls/hr IV .BOLUS [facility] Albumin Human (Flexbumin 25%) 12.5 gm in 50 mls @ 100 mls/hr IV ONETIME ONE Stop: 01/04/17 23:11 Last Admin: 01/05/17 00:53 Dose: 100 mls/hr Insulin Detemir (Levemir) 15 unit SUBCUT BEDTIME [facility] Last Admin: 01/05/17 23:06 Dose: 8 units Lisinopril (Prinivil) 5 mg PO DAILY [facility] Methylprednisolone Sodium Succinate (Solu-Medrol) 40 mg IVPUSH Q8H [facility] Last Admin: 01/05/17 00:15 Dose: 40 mg Methylprednisolone Sodium Succinate (Solu-Medrol) 40 mg IVPUSH Q8H [facility] Last Admin: 01/06/17 08:28 Dose: 40 mg Piperacillin Sod/Tazobactam Sod (Zosyn) Confirm Administered Dose 3.375 gm .ROUTE .STK-MED ONE Stop: 01/05/17 06:09 Last Admin: 01/05/17 06:26 Dose: Not Given Potassium Chloride (Klor-Con 10) 10 meq PO TID [facility] Last Admin: 01/05/17 08:51 Dose: 10 meq Vancomycin HCl (Pharmacy To Dose - Vancomycin) 1 dose .XX ONETIME ONE Stop: 01/04/17 21:57 Last Admin: 01/04/17 23:19 Dose: Not Given - Exam Quality Assessment: supplemental oxygen General: alert, oriented Neck: supple Lungs: Normal respiratory effort, Decreased breath sounds, Wheezing Cardiovascular: regular rate, regular rhythm Abdomen: bowel sounds present, soft, no tenderness Extremities: no edema - Problem List & Annotations (1) Pneumonia SNOMED Code(s): 378016203 Code(s): J18.9 - PNEUMONIA, UNSPECIFIED ORGANISM Status: Acute Current Visit: Yes Qualifiers: Pneumonia type: due to unspecified organism Laterality: bilateral Lung location: lower lobe of lung Qualified Code(s): J18.9 - Pneumonia, unspecified organism (2) Acute and chronic respiratory failure SNOMED Code(s): 77254409, 81394112 Code(s): J96.20 - ACUTE AND CHR RESP FAILURE, UNSP W HYPOXIA OR HYPERCAPNIA Status: Acute Current Visit: No Qualifiers: Respiratory failure complication: hypoxia Qualified Code(s): J96.21 - Acute and chronic respiratory failure with hypoxia (3) Acute exacerbation of chronic obstructive pulmonary disease SNOMED Code(s): 877998145 Code(s): J44.1 - CHRONIC OBSTRUCTIVE PULMONARY DISEASE W (ACUTE) EXACERBATION Status: Acute Current Visit: No (4) Hypotension, Low blood pressure SNOMED Code(s): 23535796 Code(s): I95.9 - HYPOTENSION, UNSPECIFIED Status: Acute Current Visit: No (5) Pneumonia SNOMED Code(s): 661514302 Code(s): J18.9 - PNEUMONIA, UNSPECIFIED ORGANISM Status: Acute Current Visit: No Qualifiers: Pneumonia type: due to unspecified organism Laterality: left Lung location: lower lobe of lung Qualified Code(s): J18.9 - Pneumonia, unspecified organism (6) Sepsis SNOMED Code(s): 48373777 Code(s): A41.9 - SEPSIS, UNSPECIFIED ORGANISM Status: Acute Current Visit : No Qualifiers: Sepsis type: sepsis due to unspecified organism Qualified Code(s): A41.9 - Sepsis, unspecified organism (7) Hypoxemia SNOMED Code(s): 349865784 Code(s): R09.02 - HYPOXEMIA Status: Chronic Priority: Medium Current Visit: No - Problem List Review Problem List Initiated/Reviewed/Updated: Yes - My Orders Last 24 Hours: My Active Orders 01/05/17 10:15 Aspirin [Halfprin] 81 mg PO DAILY 01/05/17 10:53 OT Evaluation and Treatment [CONS] Routine PT Evaluation and Treatment [CONS] Routine 01/05/17 12:00 Potassium Chloride [Klor-Con 10] 10 meq PO TIDMEALS 01/05/17 14:00 Furosemide [Lasix] 20 mg PO BIDDIURETIC 01/05/17 18:00 Budesonide [Pulmicort] 0.5 mg INH BIDRT 01/05/17 21:00 Gabapentin [Neurontin] 300 mg PO BEDTIME Simvastatin [Zocor] 40 mg PO BEDTIME 01/05/17 23:00 Levofloxacin/Dextrose 5%-Water [Levaquin in D5W 750 MG/150 ML] 750 mg Premix Bag 1 bag IV Q24H 01/06/17 10:58 Insulin Detemir [Levemir] 20 unit SUBCUT BEDTIME 01/06/17 17:00 methylPREDNISolone Sod Succ [Solu-MEDROL] 40 mg IVPUSH Q12H 01/07/17 05:11 B-TYPE NATRIURETIC PEPTIDE,BNP [CHEM] AM 01/07/17 05:15 BASIC METABOLIC PANEL,BMP [CHEM] AM CBC WITH AUTO DIFF [HEME] AM - Plan Plan:: Acute on chronic hypoxemic respiratory failure likely multifactorial due to COPD , pneumonia, effusion Baseline oxygen need is about 2-3 L per minute Supplement oxygen as needed discussed the option of thoracentesis on Thursday but at this point the patient was not interested in this, would like to try to stay on medical therapy Pneumonia with sepsis (hypotension, tachycardia, leukocytosis) POA Concern for gram-negative organisms, health care related pneumonia pending blood culture, sputum culture Treat with Zosyn, vancomycin, levofloxacin Follow culture results Acute COPD exacerbation The patient has had home oxygen and chronic steroid use continue higher doses of steroids IV - start tapering them supplemental oxygen as needed Use DuoNeb as needed Continue Pulmicort twice a day Treat with formoterol twice a day Hypotension present on admission resolved This might relate to dehydration, was holding the Lasix not we'll restart This might relate to acute adrenal insufficiency, give high doses of steroid continue to hold lisinopril was given IV albumin Anxiety Use Ativan as needed 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 Continue Pichardo catheter 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 Decrease steroid dose increase levemir, Treatment glyburide, NovoLog with meals Follow blood sugars and new supplement and insulin and hypoglycemia protocol as needed 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
[2017-01-06] MEDS: Sodium Chloride 0.9% 10 ML Syringe FLUSH PRN ×4 (13:17→22:06)
[2017-01-06] MEDS: Insulin Detemir 100 Units/ML 3 ML Pen SUBCUT SCH (21:45)
[2017-01-06] MEDS: Gabapentin 300 MG Cap PO SCH (21:48)
[2017-01-06] MEDS: Simvastatin 40 MG Tab PO SCH (21:48)
[2017-01-06] MEDS: Levofloxacin/Dextrose 5%-Water 750 MG in Premix Bag 1 BAG IV SCH (22:06)
[2017-01-07] MEDS: Sodium Chloride 0.9% 10 ML Syringe FLUSH PRN ×3 (00:03→05:18)
[2017-01-07] MEDS: Piperacillin/Tazobactam 3.375 GM in Sodium Chloride 0.9% 100 ML IV SCH ×4 (00:05→17:39)
[2017-01-07] MEDS: methylPREDNISolone Sodium Succinate 40 MG/1 ML SDV IVPUSH SCH (05:19)
[2017-01-07] MEDS: Pantoprazole 40 MG Tab.CR PO SCH (05:25)
[2017-01-07] MEDS: Heparin Sodium 5,000 Units/ML Vial SUBCUT SCH ×3 (05:25→22:24)
[2017-01-07 07:15] LABS: CHLORIDE,CL 100 mmol/L (101-111); SODIUM,NA 138 mmol/L (135-145)
[2017-01-07] MEDS: Budesonide 0.5 MG/2 ML Neb Susp INH SCH ×2 (07:41→17:42)
[2017-01-07] MEDS: Insulin Aspart 100 Units/ML 3 ML Pen SUBCUT SCH ×7 (09:01→21:30)
[2017-01-07] MEDS: Cholecalciferol (Vitamin D3) 400 Unit Tab PO SCH (09:02)
[2017-01-07] MEDS: Multivitamins,Therapeutic Tab PO SCH (09:03)
[2017-01-07] MEDS: Glimepiride 2 MG Tab PO SCH (09:03)
[2017-01-07] MEDS: Furosemide 20 MG Tab PO SCH ×3 (09:03→20:33)
[2017-01-07] MEDS: Ferrous Sulfate 325 MG Tab PO SCH (09:03)
[2017-01-07] MEDS: Potassium Chloride 10 MEQ Tab.ER PO SCH ×3 (09:04→17:39)
[2017-01-07] MEDS: Aspirin 81 MG Tab.EC PO SCH (09:04)
[2017-01-07] MEDS: Escitalopram 10 MG Tab PO SCH (09:04)
--- NOTE | 2017-01-07 11:15 | PCM.PN ---
- General Info Date of Service: 01/07/17 Admission Dx/Problem (Free Text): Admission Diagnosis/Problem Admission Diagnosis/Problem Hypotension, acute on chronic hypoxemic respiratory failure Subjective Update: he is feeling better, shortness of breath still present but not severe. There is no associated chest pain, no nausea or vomiting, no abdominal pain. his oxygen need has decreased, back to his usual 3-3.5 L per minute oxygen. No fever, shortness of breath is worse with activity, no associated chest pain. Functional Status: Reports: pain controlled - Review of Systems General: Reports: weakness. Denies: fever Pulmonary: Reports: shortness of breath (improving), cough. Denies: sputum Cardiovascular: Reports: edema. Denies: chest pain Gastrointestinal: Denies: Abdominal pain Neurological: Denies: confusion - Patient Data Vitals - most recent: Last Vital Signs Temp 36.9 C 01/07/17 11:08 Pulse 71 01/07/17 11:08 Resp 20 01/07/17 11:08 BP 132/68 01/07/17 11:08 Pulse Ox 98 01/07/17 11:08 Weight - most recent: 78.245 kg I&O - last 24 hours: Intake & Output 01/06/17 01/07/17 01/07/17 22:59 06:59 14:59 Intake Total 1206 350 Output Total 600 651 Balance 606 -301 Lab Results last 24 hrs: Laboratory Results - last 24 hr 01/06/17 01/06/17 01/07/17 Range/Units 16:49 20:41 06:46 WBC (5.0-10.0) 10^3/uL RBC (4.6-6.2) 10^6/uL Hgb (14.0-18.0) g/dL Hct (40.0-54.0) % MCV (80-100) fL MCH (27.0-34.0) pg MCHC (33.0-35.0) g/dL Plt Count (150-450) 10^3/uL Neut % (Auto) (42.2-75.2) % Lymph % (Auto) (20.5-50.1) % Mercer % (Auto) (2-8) % Eos % (Auto) (1.0-3.0) % Baso % (Auto) (0.0-1.0) % Sodium 138 (135-145) mmol/L Potassium 4.1 (3.6-5.0) mmol/L Chloride 100 L (101-111) mmol/L Carbon Dioxide 28.0 (21.0-31.0) mmol/L Anion Gap 14.1 BUN 35 H (7-18) mg/dL Creatinine 1.1 (0.6-1.3) mg/dL Est Cr Clr Drug Dosing 45.66 mL/min Estimated GFR (MDRD) > 60 Glucose 295 H (74-105) mg/dL POC Glucose 330 H 352 H (83-110) mg/dl Calcium 8.5 (8.4-10.2) mg/dl B-Natriuretic Peptide 326 H (0-100) pg/ml 01/07/17 01/07/17 Range/Units 06:46 08:02 WBC 9.5 (5.0-10.0) 10^3/uL RBC 3.37 L (4.6-6.2) 10^6/uL Hgb 9.1 L (14.0-18.0) g/dL Hct 29.9 L (40.0-54.0) % MCV 88.7 (80-100) fL MCH 27.0 (27.0-34.0) pg MCHC 30.4 L (33.0-35.0) g/dL Plt Count 271 (150-450) 10^3/uL Neut % (Auto) 88.7 H (42.2-75.2) % Lymph % (Auto) 5.9 L (20.5-50.1) % Mercer % (Auto) 5.3 (2-8) % Eos % (Auto) 0.0 L (1.0-3.0) % Baso % (Auto) 0.1 (0.0-1.0) % Sodium (135-145) mmol/L Potassium (3.6-5.0) mmol/L Chloride (101-111) mmol/L Carbon Dioxide (21.0-31.0) mmol/L Anion Gap BUN (7-18) mg/dL Creatinine (0.6-1.3) mg/dL Est Cr Clr Drug Dosing mL/min Estimated GFR (MDRD) Glucose (74-105) mg/dL POC Glucose 261 H (83-110) mg/dl Calcium (8.4-10.2) mg/dl B-Natriuretic Peptide (0-100) pg/ml Med Orders - Current: Current Medications Acetaminophen (Tylenol) 650 mg PO Q4H PRN PRN Reason: Pain (Mild 1-3)/fever Last Admin: 01/06/17 10:11 Dose: 650 mg Albuterol/Ipratropium (Duoneb 3.0-0.5 Mg/3 Ml) 3 ml NEB QIDRT PRN PRN Reason: sob Last Admin: 01/06/17 22:04 Dose: 3 ml Aspirin (Halfprin) 81 mg PO DAILY [facility] Last Admin: 01/07/17 09:04 Dose: 81 mg Budesonide (Pulmicort) 0.5 mg INH BIDRT [facility] Last Admin: 01/07/17 07:41 Dose: 0.5 mg Cholecalciferol (Vitamin D3) 1,000 units PO DAILY [facility] Last Admin: 01/07/17 09:02 Dose: 1,000 units Docusate Sodium (Colace) 100 mg PO BID PRN PRN Reason: Constipation Escitalopram Oxalate (Lexapro) 10 mg PO DAILY [facility] Last Admin: 01/07/17 09:04 Dose: 10 mg Ferrous Sulfate (Ferrous Sulfate) 325 mg PO WITHBREAKFAST [facility] Last Admin: 01/07/17 09:03 Dose: 325 mg Furosemide (Lasix) 20 mg PO BIDDIURETIC [facility] Last Admin: 01/07/17 09:03 Dose: 20 mg Gabapentin (Neurontin) 300 mg PO BEDTIME [facility] Last Admin: 01/06/17 21:48 Dose: 300 mg Glimepiride (Amaryl) 1 mg PO WITHBREAKFAST [facility] Last Admin: 01/07/17 09:03 Dose: 1 mg Heparin Sodium (Porcine) (Heparin Sodium) 5,000 units SUBCUT Q8HR [facility] Last Admin: 01/07/17 05:25 Dose: 5,000 units Piperacillin Sod/Tazobactam (Sod 3.375 gm/ Sodium Chloride) 100 mls @ 200 mls/ hr IV Q6H [facility] Last Infusion: 01/07/17 06:31 Dose: Infused Levofloxacin/Dextrose 750 mg/ (Premix) 150 mls @ 100 mls/hr IV Q24H [facility] Last Infusion: 01/07/17 00:03 Dose: Infused Insulin Aspart (Novolog) 8 unit SUBCUT TIDAC [facility] Last Admin: 01/07/17 09:01 Dose: 8 units Insulin Aspart (Novolog) 0 unit SUBCUT QIDACANDBED [facility] PRN Reason: Protocol Last Admin: 01/07/17 09:01 Dose: 6 units Insulin Detemir (Levemir) 20 unit SUBCUT BEDTIME [facility] Last Admin: 01/06/17 21:45 Dose: 20 units Lorazepam (Ativan) 0.5 mg PO Q4H PRN PRN Reason: Anxiety Methylprednisolone Sodium Succinate (Solu-Medrol) 40 mg IVPUSH Q12H [facility] Last Admin: 01/07/17 05:19 Dose: 40 mg Multivitamins (Thera) 1 each PO DAILY [facility] Last Admin: 01/07/17 09:03 Dose: 1 each (Formoterol [ Perforomist] 20 Mcg) Own Med 20 mcg NEB BID [facility] Last Admin: 01/07/17 08:12 Dose: 20 mcg Ondansetron HCl (Zofran Odt) 4 mg PO Q6H PRN PRN Reason: nausea, able to take PO Ondansetron HCl (Zofran) 4 mg IVPUSH Q6H PRN PRN Reason: Nausea/Vomiting Pantoprazole Sodium (Protonix) 40 mg PO ACBREAKFAST [facility] Last Admin: 01/07/17 05:25 Dose: 40 mg Potassium Chloride (Klor-Con 10) 10 meq PO TIDMEALS [facility] Last Admin: 01/07/17 09:04 Dose: 10 meq Simvastatin (Zocor) 40 mg PO BEDTIME [facility] Last Admin: 01/06/17 21:48 Dose: 40 mg Sodium Chloride (Saline Flush) 10 ml FLUSH ASDIRECTED PRN PRN Reason: Keep Vein Open Last Admin: 01/07/17 05:18 Dose: 10 ml Zolpidem Tartrate (Ambien) 5 mg PO BEDTIME PRN PRN Reason: Sleep Discontinued Medications Aspirin (Ecotrin) 81 mg PO DAILY [facility] Last Admin: 01/05/17 10:34 Dose: Not Given Aspirin (Aspirin) Confirm Administered Dose 81 mg .ROUTE .STK-MED ONE Stop: 01/05/17 08:32 Last Admin: 01/05/17 10:33 Dose: 81 mg Budesonide (Pulmicort) 0.5 mg INH BID [facility] Last Admin: 01/05/17 10:45 Dose: 0.5 mg Furosemide (Lasix) 40 mg PO BID [facility] Levofloxacin/Dextrose 500 mg/ (Premix) 100 mls @ 100 mls/hr IV ONETIME ONE Stop: 01/04/17 22:19 Last Admin: 01/04/17 23:13 Dose: 100 mls/hr Piperacillin Sod/Tazobactam (Sod 3.375 gm/ Sodium Chloride) 100 mls @ 200 mls/ hr IV ONETIME ONE Stop: 01/04/17 21:49 Last Admin: 01/05/17 00:18 Dose: 200 mls/hr Vancomycin HCl 1.5 gm/ Sodium (Chloride) 500 mls @ 334 mls/hr IV ONETIME ONE Stop: 01/04/17 22:49 Last Admin: 01/04/17 21:37 Dose: 334 mls/hr Levofloxacin/Dextrose 750 mg/ (Premix) 150 mls @ 100 mls/hr IV DAILY [facility] Sodium Chloride (Normal Saline) 500 mls @ 500 mls/hr IV .BOLUS [facility] Albumin Human (Flexbumin 25%) 12.5 gm in 50 mls @ 100 mls/hr IV ONETIME ONE Stop: 01/04/17 23:11 Last Admin: 01/05/17 00:53 Dose: 100 mls/hr Insulin Detemir (Levemir) 15 unit SUBCUT BEDTIME [facility] Last Admin: 01/05/17 23:06 Dose: 8 units Lisinopril (Prinivil) 5 mg PO DAILY [facility] Methylprednisolone Sodium Succinate (Solu-Medrol) 40 mg IVPUSH Q8H [facility] Last Admin: 01/05/17 00:15 Dose: 40 mg Methylprednisolone Sodium Succinate (Solu-Medrol) 40 mg IVPUSH Q8H [facility] Last Admin: 01/06/17 08:28 Dose: 40 mg Piperacillin Sod/Tazobactam Sod (Zosyn) Confirm Administered Dose 3.375 gm .ROUTE .STK-MED ONE Stop: 01/05/17 06:09 Last Admin: 01/05/17 06:26 Dose: Not Given Potassium Chloride (Klor-Con 10) 10 meq PO TID [facility] Last Admin: 01/05/17 08:51 Dose: 10 meq Vancomycin HCl (Pharmacy To Dose - Vancomycin) 1 dose .XX ONETIME ONE Stop: 01/04/17 21:57 Last Admin: 01/04/17 23:19 Dose: Not Given - Exam Quality Assessment: supplemental oxygen General: alert, oriented Lungs: Decreased breath sounds, Rales. No: Wheezing Cardiovascular: regular rate, regular rhythm Abdomen: bowel sounds present, soft, no tenderness Back Exam: normal inspection Extremities: edema (1-2+) Skin: warm Psy/Mental Status: alert, normal affect, normal mood - Problem List & Annotations (1) Pneumonia SNOMED Code(s): 214447279 Code(s): J18.9 - PNEUMONIA, UNSPECIFIED ORGANISM Status: Acute Current Visit: Yes Qualifiers: Pneumonia type: due to unspecified organism Laterality: bilateral Lung location: lower lobe of lung Qualified Code(s): J18.9 - Pneumonia, unspecified organism (2) Acute and chronic respiratory failure SNOMED Code(s): 00487176, 75301694 Code(s): J96.20 - ACUTE AND CHR RESP FAILURE, UNSP W HYPOXIA OR HYPERCAPNIA Status: Acute Current Visit: No Qualifiers: Respiratory failure complication: hypoxia Qualified Code(s): J96.21 - Acute and chronic respiratory failure with hypoxia (3) Acute exacerbation of chronic obstructive pulmonary disease SNOMED Code(s): 607101712 Code(s): J44.1 - CHRONIC OBSTRUCTIVE PULMONARY DISEASE W (ACUTE) EXACERBATION Status: Acute Current Visit: No (4) Hypotension, Low blood pressure SNOMED Code(s): 81734340 Code(s): I95.9 - HYPOTENSION, UNSPECIFIED Status: Acute Current Visit: No (5) Pneumonia SNOMED Code(s): 314078379 Code(s): J18.9 - PNEUMONIA, UNSPECIFIED ORGANISM Status: Acute Current Visit: No Qualifiers: Pneumonia type: due to unspecified organism Laterality: left Lung location: lower lobe of lung Qualified Code(s): J18.1 - Lobar pneumonia, unspecified organism (6) Sepsis SNOMED Code(s): 55375774 Code(s): A41.9 - SEPSIS, UNSPECIFIED ORGANISM Status: Acute Current Visit : No Qualifiers: Sepsis type: sepsis due to unspecified organism Qualified Code(s): A41.9 - Sepsis, unspecified organism (7) Hypoxemia SNOMED Code(s): 990844457 Code(s): R09.02 - HYPOXEMIA Status: Chronic Priority: Medium Current Visit: No - Problem List Review Problem List Initiated/Reviewed/Updated: Yes - My Orders Last 24 Hours: My Active Orders 01/06/17 17:00 methylPREDNISolone Sod Succ [Solu-MEDROL] 40 mg IVPUSH Q12H 01/06/17 21:00 Insulin Detemir [Levemir] 20 unit SUBCUT BEDTIME 01/07/17 07:49 RT Chest Physiotherapy [RC] ASDIRECTED RT Incentive Spirometry [RC] ASDIRECTED 01/08/17 05:15 BASIC METABOLIC PANEL,BMP [CHEM] AM CBC WITH AUTO DIFF [HEME] AM 01/09/17 05:11 B-TYPE NATRIURETIC PEPTIDE,BNP [CHEM] AM - Plan Plan:: Acute on chronic hypoxemic respiratory failure likely multifactorial due to COPD , pneumonia, effusion Baseline oxygen need is about 2-3 L per minute Supplement oxygen as needed discussed the option of thoracentesis on Thursday but at this point the patient was not interested in this, would like to try to stay on medical therapy Pneumonia with sepsis (hypotension, tachycardia, leukocytosis) POA Concern for gram-negative organisms, health care related pneumonia blood culture pending, negative for now sputum culture Negative for now Treat with Zosyn, vancomycin, levofloxacin Follow culture results Acute COPD exacerbation improving, less wheezing The patient has had home oxygen and chronic steroid use continue higher doses of steroids IV - continue tapering them today supplemental oxygen as needed Use DuoNeb as needed Continue Pulmicort twice a day Treat with formoterol twice a day Hypotension present on admission resolved This might relate to dehydration, was holding the Lasix - now restarted This might relate to acute adrenal insufficiency, gave high doses of steroid - taper it further today continue to hold lisinopril was given IV albumin Anxiety Use Ativan as needed 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 Continue Pichardo catheter 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 Decrease steroid dose increased levemir, Treatment glyburide, NovoLog with meals Follow blood sugars and new supplement and insulin and hypoglycemia protocol as needed History of chronic diastolic congestive heart failure with pleural fusion Last echocardiogram a few weeks ago showed an ejection fraction of 55%, grade 1 diastolic dysfunction resumed Lasix - further increase today consider thoracentesis if no improvement h/o Hypertension Was on Treatment with lisinopril Will hold Lisinopril given the hypotension on admission DVT prophylaxis will be to subcutaneous heparin CODE STATUS per retirement is DNR, confirmed with son on admission
[2017-01-07] MEDS: Gabapentin 300 MG Cap PO SCH (20:33)
[2017-01-07] MEDS: Simvastatin 40 MG Tab PO SCH (20:34)
[2017-01-07] MEDS: Insulin Detemir 100 Units/ML 3 ML Pen SUBCUT SCH (21:29)
[2017-01-07] MEDS: Levofloxacin/Dextrose 5%-Water 750 MG in Premix Bag 1 BAG IV SCH (22:27)
[2017-01-08] MEDS: Piperacillin/Tazobactam 3.375 GM in Sodium Chloride 0.9% 100 ML IV SCH ×4 (00:13→18:03)
[2017-01-08] MEDS: Heparin Sodium 5,000 Units/ML Vial SUBCUT SCH ×3 (06:23→21:58)
[2017-01-08] MEDS: Pantoprazole 40 MG Tab.CR PO SCH (06:23)
[2017-01-08] MEDS: Budesonide 0.5 MG/2 ML Neb Susp INH SCH ×2 (06:24→18:03)
[2017-01-08 06:44] LABS: CHLORIDE,CL 96 mmol/L (101-111); SODIUM,NA 138 mmol/L (135-145)
[2017-01-08] MEDS: methylPREDNISolone Sodium Succinate 40 MG/1 ML SDV IVPUSH SCH (09:01)
[2017-01-08] MEDS: Aspirin 81 MG Tab.EC PO SCH (09:01)
[2017-01-08] MEDS: Multivitamins,Therapeutic Tab PO SCH (09:01)
[2017-01-08] MEDS: Cholecalciferol (Vitamin D3) 400 Unit Tab PO SCH (09:01)
[2017-01-08] MEDS: Insulin Aspart 100 Units/ML 3 ML Pen SUBCUT SCH ×7 (09:02→21:57)
[2017-01-08] MEDS: Potassium Chloride 10 MEQ Tab.ER PO SCH ×3 (09:02→18:03)
[2017-01-08] MEDS: Ferrous Sulfate 325 MG Tab PO SCH (09:02)
[2017-01-08] MEDS: Furosemide 20 MG Tab PO SCH ×3 (09:02→21:20)
[2017-01-08] MEDS: Escitalopram 10 MG Tab PO SCH (09:02)
[2017-01-08] MEDS: Glimepiride 2 MG Tab PO SCH (09:02)
--- NOTE | 2017-01-08 11:27 | PN ---
DATE: 01/08/2017 HISTORY OF PRESENT ILLNESS: Mr. Stephanie Machado is an 86-year-old male with medical history significant for hypertension, hyperlipidemia, chronic obstructive pulmonary disease, chronic hypoxic respiratory failure on oxygen, chronic congestive heart failure, recurrent pleural effusion, and recurrent pneumonias with multiple admissions to the hospital, was admitted this time with complaints of increasing shortness of breath and acute on chronic hypoxic respiratory failure, mainly from pneumonia process and started on IV antibiotics. For the past 24 hours, the patient is noted to have some blood-tinged mucus from his nose. Continues to have shortness of breath. Continues to have mild cough. Denies any chest pain. Denies any abdominal pain. No nausea, vomiting, or diarrhea. REVIEW OF SYSTEMS: Cardiovascular, respiratory, gastrointestinal, constitutional were all evaluated. PHYSICAL EXAMINATION: Vital Signs: Temperature of 97.9, pulse of 70, blood pressure 112/66, respiratory rate of 22, saturating at 97% on 3 L of oxygen. General Appearance: The patient is well oriented to time, place, and person. Follows commands spontaneously. Cardiovascular system: S1 and S2 heard with normal intensity. No gallops. Respiratory System: Bilateral mild crepitations. No wheezes. Abdomen: Soft. Bowel sounds positive. Nontender. No rigidity. Extremities: Mild edema in bilateral lower extremity more so on the right side. Neurology: No gross focal neurological deficits. MEDICATIONS: Reviewed. Continue with: 1. Tylenol 650 mg every 4 hours as needed for pain. 2. DuoNeb 3 mL nebulizer 4 times a day. 3. Pulmicort twice a day. 4. Lexapro 10 mg daily. 5. Lasix 20 mg 3 times a day. 6. Neurontin 300 mg at bedtime. 7. Amaryl changed to 1 mg with breakfast. 8. Heparin 5000 subcu q.8 hourly. 9. NovoLog supplemental scale along with 8 units 3 times a day with meals. 10.Levemir 20 units at bedtime. 11.Lorazepam 0.5 mg every 4 hours as needed for anxiety. 12.Methylprednisolone 40 mg IV daily. 13.Zosyn. 14.Potassium chloride 10 mEq three times a day with meals. LABORATORY DATA: WBC 7.9, hemoglobin 9.2, hematocrit 30.2, platelet count 273. Sodium 138, potassium 3.7, chloride 96, bicarb 36, creatinine 1.1, and blood glucose 60. B-natriuretic peptide 264. ASSESSMENT: 1. Acute on chronic hypoxic respiratory failure. 2. Pneumonia with possible sepsis. 3. Hypertension. 4. Hyperlipidemia. 5. Acute chronic obstructive pulmonary disease exacerbation. 6. History of anxiety. 7. Type 2 diabetes mellitus. PLAN: 1. Possible pneumonia. The patient was admitted with possible pneumonia and sepsis. He is currently on broad-spectrum antibiotics. His symptoms seems to be improved. His sepsis got resolved. Continue with current IV antibiotic regimen. The patient had multiple admissions to the hospital because of possible gram-negative pneumonia. 2. Acute chronic obstructive pulmonary disease exacerbation, remains stable. The patient does not have any wheeze except for crepitations, currently on nebulizer treatment and IV methylprednisolone. 3. Hypertension. The patient was hypertensive at the time of admission, and this got improved with IV hydration and treatment. Continue current antihypertensive medication. 4. Acute on chronic congestive heart failure, much improved. Continue with Lasix. We will change the Lasix dose. 5. History of anxiety. The patient uses Ativan as needed. Continue the same. 6. Type 2 diabetes mellitus, this is mainly from steroid dosing. Continue the insulin regimen. Check his fingersticks with each meals, have him on supplemental scale insulin as needed for additional coverage of his blood glucose. 7. Discussed with Dr. Banegas regarding the plan of care. [facility] /[id number]
[2017-01-08] MEDS: Acetaminophen 325 MG Tab PO PRN (15:09)
[2017-01-08] MEDS: Gabapentin 300 MG Cap PO SCH (21:21)
[2017-01-08] MEDS: Simvastatin 40 MG Tab PO SCH (21:21)
[2017-01-08] MEDS: LORazepam 0.5 MG Tab PO PRN (21:21)
[2017-01-08] MEDS: Insulin Detemir 100 Units/ML 3 ML Pen SUBCUT SCH (21:57)
[2017-01-08] MEDS: Levofloxacin/Dextrose 5%-Water 750 MG in Premix Bag 1 BAG IV SCH (22:35)
[2017-01-09] MEDS: Piperacillin/Tazobactam 3.375 GM in Sodium Chloride 0.9% 100 ML IV SCH ×4 (00:08→17:30)
[2017-01-09] MEDS: Heparin Sodium 5,000 Units/ML Vial SUBCUT SCH ×3 (05:50→22:24)
[2017-01-09] MEDS: Pantoprazole 40 MG Tab.CR PO SCH (05:51)
[2017-01-09] MEDS: Budesonide 0.5 MG/2 ML Neb Susp INH SCH ×2 (06:28→16:59)
[2017-01-09] MEDS: Insulin Aspart 100 Units/ML 3 ML Pen SUBCUT SCH ×7 (08:22→22:22)
[2017-01-09] MEDS: methylPREDNISolone Sodium Succinate 40 MG/1 ML SDV IVPUSH SCH (10:13)
[2017-01-09] MEDS: Sodium Chloride 0.9% 10 ML Syringe FLUSH PRN ×3 (10:13→17:31)
[2017-01-09] MEDS: Cholecalciferol (Vitamin D3) 400 Unit Tab PO SCH (10:16)
[2017-01-09] MEDS: Aspirin 81 MG Tab.EC PO SCH (10:16)
[2017-01-09] MEDS: Multivitamins,Therapeutic Tab PO SCH (10:17)
[2017-01-09] MEDS: Furosemide 20 MG Tab PO SCH ×2 (10:18→14:57)
[2017-01-09] MEDS: Escitalopram 10 MG Tab PO SCH (10:18)
[2017-01-09] MEDS ORDERED: Insulin Detemir 100 Units/ML 3 ML Pen SUBCUT SCH (10:59)
[2017-01-09] MEDS: Potassium Chloride 10 MEQ Tab.ER PO SCH ×3 (11:03→17:00)
[2017-01-09] MEDS: Glimepiride 2 MG Tab PO SCH (11:03)
[2017-01-09] MEDS: Ferrous Sulfate 325 MG Tab PO SCH (11:03)
[2017-01-09] MEDS: Albuterol/Ipratropium 3.0-0.5 MG/3 ML Neb Soln NEB PRN (11:09)
--- NOTE | 2017-01-09 13:52 | PN ---
DATE: 01/09/2017 SUBJECTIVE: Mr. Stephanie Machado is an 86-year-old male with medical history significant for hypertension, hyperlipidemia, chronic obstructive pulmonary disease, chronic hypoxic respiratory failure on oxygen, chronic congestive heart failure, recurrent admissions to the hospital with pneumonia was admitted to the hospital this time with complaints of increasing shortness of breath and was noted to have pneumonia and on broad-spectrum antibiotics. For the past 24 hours, the patient denies any complaints of chest pain. Complains of mild shortness of breath aggravated on exertion. No complaints of abdominal pain. No complaints of nausea, vomiting, or diarrhea. REVIEW OF SYSTEMS: Cardiovascular, respiratory, gastrointestinal, neurology, constitutional were all evaluated. PHYSICAL EXAMINATION: Vital Signs: Temperature of 99, pulse of 86, blood pressure 135/65, respiratory rate of 18, and saturating at 98% on 3 L of oxygen. General Appearance: The patient is well oriented to time, place, and person. Follows commands spontaneously. Cardiovascular System: S1 and S2 heard with normal intensity. No gallops. Respiratory System: Clear to auscultation bilaterally. No wheeze. No crepitations. Abdomen: Soft. Bowel sounds positive. Nontender. No rigidity. Extremities: Mild edema to the right lower extremity. Neurology: No gross focal neurological deficits. LABS: Blood sugars of 155. ASSESSMENT: 1. Pneumonia with possible gram-negative pneumonia. 2. Acute on chronic hypoxic respiratory failure. 3. Hypertension. 4. Hyperlipidemia. 5. Acute on chronic obstructive pulmonary disease exacerbation. 6. Type 2 diabetes mellitus, uncontrolled. PLAN: 1. Pneumonia. The patient was admitted with pneumonia process. He is currently on broad-spectrum antibiotics. Continue the same. 2. Acute on chronic hypoxic respiratory failure, seems to be improving. Continue supplemental oxygen to maintain a saturation of 95%. 3. Acute chronic obstructive pulmonary disease exacerbation, resolved. The patient does not have any wheeze noted on the lung exam today. We will continue with the nebulizer treatment. We will change IV methylprednisone to oral prednisone. Continue the nebulizers. The patient is encouraged to use incentive spirometer and flutter valve for better pulmonary toileting. 4. Hypertension, well controlled. Continue with current antihypertensive medication. The patient tends to have low blood pressure at times, so we will decrease the Lasix to 20 mg twice a day and decrease the dose of metoprolol. 5. Type 2 diabetes mellitus, uncontrolled. The patient noted to have elevated blood sugar, this is mainly from steroid dosing. Increase the dose of Levemir. Avoid any hypoglycemic episodes. Have him on supplemental scale insulin as needed for additional coverage of his blood glucose. 6. Deep venous thrombosis prophylaxis. Continue with heparin for DVT prophylaxis. 7. Acute on chronic congestive heart failure, much improved. The patient continues to have mild edema to the lower extremities. We will decrease the Lasix to 20 mg twice a day to avoid any hypotensive episodes. [facility] /[id number]
[2017-01-09] MEDS: Gabapentin 300 MG Cap PO SCH (22:24)
[2017-01-09] MEDS: Simvastatin 40 MG Tab PO SCH (22:24)
[2017-01-09] MEDS: Levofloxacin/Dextrose 5%-Water 750 MG in Premix Bag 1 BAG IV SCH (22:25)
[2017-01-10] MEDS: Piperacillin/Tazobactam 3.375 GM in Sodium Chloride 0.9% 100 ML IV SCH ×5 (00:49→23:47)
[2017-01-10] MEDS: Heparin Sodium 5,000 Units/ML Vial SUBCUT SCH ×3 (06:26→21:22)
[2017-01-10] MEDS: Pantoprazole 40 MG Tab.CR PO SCH (06:27)
[2017-01-10] MEDS: Insulin Aspart 100 Units/ML 3 ML Pen SUBCUT SCH ×7 (08:00→21:39)
[2017-01-10] MEDS: Budesonide 0.5 MG/2 ML Neb Susp INH SCH ×2 (08:02→18:13)
[2017-01-10] MEDS: Glimepiride 2 MG Tab PO SCH (08:02)
[2017-01-10] MEDS: Ferrous Sulfate 325 MG Tab PO SCH (08:03)
[2017-01-10] MEDS: Potassium Chloride 10 MEQ Tab.ER PO SCH ×3 (08:03→17:36)
[2017-01-10] MEDS: Furosemide 20 MG Tab PO SCH ×2 (08:03→14:51)
[2017-01-10] MEDS: Cholecalciferol (Vitamin D3) 400 Unit Tab PO SCH (08:28)
[2017-01-10] MEDS: Multivitamins,Therapeutic Tab PO SCH (08:29)
[2017-01-10] MEDS: Aspirin 81 MG Tab.EC PO SCH (08:29)
[2017-01-10] MEDS: predniSONE 20 MG Tab PO SCH (08:30)
[2017-01-10] MEDS: Escitalopram 10 MG Tab PO SCH (08:32)
--- NOTE | 2017-01-10 12:27 | PN ---
DATE: 01/10/2017 SUBJECTIVE: Mr. Stephanie Machado is an 86-year-old male with medical history significant for hypertension, hyperlipidemia, chronic obstructive pulmonary disease, chronic hypoxic respiratory failure on oxygen, chronic congestive heart failure, recurrent admission to the hospital with complaints of pneumonia, admitted at this time with complaints of increasing shortness of breath and was noted to have pneumonia, on broad-spectrum antibiotics. For the past 24 hours, the patient continues to have mild shortness of breath on exertion, mild weakness. Denies any chest pain. No abdominal pain. No nausea. No vomiting. No diarrhea. Continues to have swelling to the lower extremities. REVIEW OF SYSTEMS: Cardiovascular, respiratory, gastrointestinal, neurology, constitutional were all evaluated. PHYSICAL EXAMINATION: Vital Signs: Temperature of 97.6, pulse of 85, respiratory rate of 20, blood pressure 113/52, saturating at 96% on 3 L of oxygen. General Appearance: The patient is well oriented to time, place, and person. Follows commands spontaneously. Cardiovascular: S1, S2 heard with normal intensity. No gallops. Respiratory: No wheeze. Mild crepitations at the bases. Abdomen: Soft. Bowel sounds positive. Nontender. No rigidity. Extremities: Mild edema in bilateral lower extremities. Neurology: No gross focal neurological deficits. MEDICATIONS: Reviewed. Continue with: 1. Aspirin 81 mg daily. 2. Pulmicort 0.5 mg twice a day. 3. Vitamin D3 at 1000 units daily. 4. Lexapro 10 mg daily. 5. Ferrous sulfate 325 mg daily. 6. Lasix 20 mg twice a day. 7. Neurontin 300 mg at bedtime. 8. Heparin 5000 subcutaneous q.8 hourly. 9. NovoLog 8 units three times a day with each meals. 10.Levemir 24 units at bedtime. 11.Levaquin 750 mg daily. 12.Neurontin 300 mg at bedtime. 13.Multivitamin daily. 14.Zofran 4 mg every 6 hours as needed. 15.Zosyn 3.375 g IV q.6 hourly. 16.Zocor 40 mg at bedtime. 17.Potassium chloride 10 mEq three times a day. 18.Ambien 5 mg at bedtime as needed. 19.Prednisone 40 mg daily. LABORATORY DATA: Sodium 137, potassium 3.6, chloride 95, bicarb 33, BUN 27, creatinine 1.2. Glucose 78 this morning. ASSESSMENT: 1. Acute chronic obstructive pulmonary disease exacerbation. 2. Pneumonia, possible Gram-negative. 3. Acute on chronic hypoxic respiratory failure. 4. Chronic congestive heart failure. 5. Hypertension. 6. Hyperlipidemia. 7. Type 2 diabetes mellitus. PLAN: 1. Pneumonia. The patient was admitted with pneumonia, possibly Gram-negative pneumonia. The patient is currently on broad-spectrum IV antibiotics. We will change the Levaquin to 48 hours. Continue with Zosyn. So far, cultures remain negative. 2. Acute on chronic hypoxic respiratory failure, improving. The patient continues to be on nasal cannula oxygen, continue the same. Try to maintain saturations of 95%. 3. Acute COPD exacerbation. The patient is currently on oral prednisone and nebulizer treatment, continue the same. No wheeze noted on physical exam. 4. Hypertension. The patient's blood pressure seems to be well controlled. We had to change the Lasix to twice a day to avoid any hypotensive episodes. 5. Type 2 diabetes mellitus, uncontrolled. The patient noted to have low blood sugar today. We will hold glimepiride. We will decrease the Levemir to 24 units nightly and continue with NovoLog, avoid any hypoglycemic episodes, have him on hypoglycemic protocol. 6. DVT prophylaxis. Continue with heparin for DVT prophylaxis. 7. Acute on chronic congestive heart failure, much improved. The patient is continued on Lasix 20 mg twice a day. The patient might benefit from adding a Bumex and metolazone low-dose, at least two to three times a week, to maintain euvolemic status. 8. Continue with physical therapy and occupational therapy. 9. The patient is encouraged to use incentive spirometer and flutter valve. [facility] /[id number]
[2017-01-10] MEDS ORDERED: Levofloxacin/Dextrose 5%-Water 750 MG in Premix Bag 1 BAG IV SCH (15:00)
[2017-01-10] MEDS: Sodium Chloride 0.9% 10 ML Syringe FLUSH PRN (17:48)
[2017-01-10] MEDS: Albuterol/Ipratropium 3.0-0.5 MG/3 ML Neb Soln NEB PRN (21:20)
[2017-01-10] MEDS: Gabapentin 300 MG Cap PO SCH (21:23)
[2017-01-10] MEDS: Simvastatin 40 MG Tab PO SCH (21:23)
[2017-01-10] MEDS: Insulin Detemir 100 Units/ML 3 ML Pen SUBCUT SCH (21:25)
[2017-01-10] MEDS ORDERED: Insulin Aspart 100 Units/ML 3 ML Pen SUBCUT ONE ×2 (21:29→21:31)
[2017-01-10] MEDS: LORazepam 0.5 MG Tab PO PRN (23:45)
[2017-01-11] MEDS: Pantoprazole 40 MG Tab.CR PO SCH (05:32)
[2017-01-11] MEDS: Heparin Sodium 5,000 Units/ML Vial SUBCUT SCH ×3 (05:33→22:51)
[2017-01-11] MEDS: Piperacillin/Tazobactam 3.375 GM in Sodium Chloride 0.9% 100 ML IV SCH ×3 (05:33→17:32)
[2017-01-11] MEDS: Sodium Chloride 0.9% 10 ML Syringe FLUSH PRN ×4 (05:37→22:53)
[2017-01-11 06:24] LABS: CHLORIDE,CL 95 mmol/L (101-111); SODIUM,NA 135 mmol/L (135-145)
[2017-01-11] MEDS: Insulin Aspart 100 Units/ML 3 ML Pen SUBCUT SCH ×7 (08:10→21:01)
[2017-01-11] MEDS: Ferrous Sulfate 325 MG Tab PO SCH (08:20)
[2017-01-11] MEDS: Furosemide 20 MG Tab PO SCH ×3 (08:20→21:02)
[2017-01-11] MEDS: Potassium Chloride 10 MEQ Tab.ER PO SCH ×3 (08:20→17:32)
[2017-01-11] MEDS: predniSONE 20 MG Tab PO SCH (08:21)
[2017-01-11] MEDS: Cholecalciferol (Vitamin D3) 400 Unit Tab PO SCH (09:14)
[2017-01-11] MEDS: Multivitamins,Therapeutic Tab PO SCH (09:14)
[2017-01-11] MEDS: Aspirin 81 MG Tab.EC PO SCH (09:15)
[2017-01-11] MEDS: Escitalopram 10 MG Tab PO SCH (09:16)
[2017-01-11] MEDS: Budesonide 0.5 MG/2 ML Neb Susp INH SCH ×2 (09:43→18:17)
[2017-01-11] MEDS: Loperamide 2 MG Cap PO PRN ×2 (16:14→21:03)
[2017-01-11] MEDS: Insulin Detemir 100 Units/ML 3 ML Pen SUBCUT SCH (21:02)
[2017-01-11] MEDS: Simvastatin 40 MG Tab PO SCH (21:03)
[2017-01-11] MEDS: Gabapentin 300 MG Cap PO SCH (21:03)
[2017-01-11] MEDS ORDERED: Levofloxacin/Dextrose 5%-Water 750 MG in Premix Bag 1 BAG IV SCH (23:00)
[2017-01-12] MEDS: Piperacillin/Tazobactam 3.375 GM in Sodium Chloride 0.9% 100 ML IV SCH ×4 (00:40→18:20)
[2017-01-12] MEDS: Loperamide 2 MG Cap PO PRN (02:32)
[2017-01-12] MEDS: Sodium Chloride 0.9% 10 ML Syringe FLUSH PRN ×4 (05:41→18:19)
[2017-01-12] MEDS: Heparin Sodium 5,000 Units/ML Vial SUBCUT SCH ×3 (05:42→23:01)
[2017-01-12] MEDS: Pantoprazole 40 MG Tab.CR PO SCH (05:42)
[2017-01-12 06:50] LABS: CHLORIDE,CL 93 mmol/L (101-111); SODIUM,NA 134 mmol/L (135-145)
--- NOTE | 2017-01-12 07:13 | PN ---
DATE: 01/11/2017 SUBJECTIVE: Mr. Carter Brown is an 86-year-old male with medical history significant for hypertension; hyperlipidemia; chronic obstructive pulmonary disease; chronic hypoxic respiratory failure, on oxygen; chronic congestive heart failure; recurrent admission to the hospital with pneumonia; admitted at this time with complaints of increasing shortness of breath and noted to have possible pneumonia, possible Gram-negative pneumonia and was started on broad- spectrum antibiotics. For the past 24 hours, the patient denies any complaints of chest pain but continues to have shortness of breath and noted to have edema to the lower extremities. Denies any chest pain. No abdominal pain. No nausea. No vomiting. No diarrhea. REVIEW OF SYSTEMS: Cardiovascular, respiratory, gastrointestinal, neurology, and constitutional were all evaluated. PHYSICAL EXAMINATION: Vital signs: Temperature of 97.7, pulse of 79, blood pressure 108/66, respiratory rate of 20, saturating at 99% on 3 L of oxygen. General Appearance: The patient is well oriented to time, place, and person. Follows commands spontaneously. Cardiovascular: S1, S2 heard with normal intensity. No gallops. Respiratory: Bilateral crepitations positive. No wheezes. Abdomen: Soft. Bowel sounds positive. Nontender. No rigidity. Extremities: Edema of bilateral lower extremities. Neurology: No gross focal neurological deficit. Skin: Decubitus ulcers noted on the right heel. Black eschar tissue noted. LABORATORY DATA: Sodium 135, potassium 3.7, chloride 95, bicarb 33, BUN 28, creatinine 1, and glucose 140. MEDICATIONS: Reviewed, continue with: 1. DuoNeb 3 mL nebulizer 4 times a day. 2. Pulmicort twice a day. 3. Lexapro 10 mg daily. 4. Lasix 20 mg daily. We will increase to 3 times a day. 5. Neurontin 300 mg at bedtime. 6. Heparin 5000 subcu q.8 hourly. 7. NovoLog 18 units 3 times a day. 8. Levemir 24 units at bedtime. 9. Levaquin every 48 hours. 10.Ativan every 4 hours as needed. 11.Zofran 4 mg every 6 hours as needed. 12.Zosyn 3.375 g IV q.6 hourly. 13.Zocor 40 mg at bedtime. 14.Ambien 5 mg at bedtime as needed. 15.Prednisone 40 mg daily. ASSESSMENT: 1. Acute chronic obstructive pulmonary disease exacerbation. 2. Pneumonia, possible Gram-negative. 3. [id number]-dg-[id number] hypoxic respiratory failure. 4. Chronic congestive heart failure. 5. Hypertension. 6. Hyperlipidemia. 7. Type 2 diabetes mellitus. PLAN: 1. Pneumonia. The patient was admitted with increasing shortness of breath and is noted to have possible pneumonia. The patient is currently on broad- spectrum IV antibiotics. Continue the same. One might consider switching him to oral antibiotic at the time of discharge. So far, cultures remain negative. 2. Acute COPD exacerbation, remains stable. COPD is currently on nebulizer treatment with DuoNeb and Pulmicort nebulizer and we switched him to oral prednisone, continue the same. Continue supplemental oxygen. 3. Chronic hypoxic respiratory failure. The patient continues to be on nasal cannula oxygen. Continue the same to maintain a saturation of 95%. 4. Hypertension, well controlled. Continue current antihypertensive medication. 5. Type 2 diabetes mellitus, uncontrolled. The patient was noted to have elevated blood sugar. We have been titrating of the insulin regimen. Use supplemental scale insulin as needed. Try to avoid any hypoglycemic episodes. 6. DVT prophylaxis. Continue with heparin for DVT prophylaxis. 7. Continue with Physical Therapy and Occupational Therapy. 8. Decubitus ulcer. The patient noted to have chronic decubitus ulcer, involving the right heel region. Continue daily dressings. 9. Chronic congestive heart failure. Increase the Lasix to 20 mg 3 times a day. We recently decreased the dose secondary to hypotension but as the patient noted to have weight gain, we will the increase the Lasix to 20 mg 3 times a day at this time. [facility] /[id number]
[2017-01-12] MEDS: Insulin Aspart 100 Units/ML 3 ML Pen SUBCUT SCH ×7 (08:54→22:59)
[2017-01-12] MEDS: Cholecalciferol (Vitamin D3) 400 Unit Tab PO SCH (09:14)
[2017-01-12] MEDS: Potassium Chloride 10 MEQ Tab.ER PO SCH ×3 (09:14→17:46)
[2017-01-12] MEDS: Ferrous Sulfate 325 MG Tab PO SCH (09:14)
[2017-01-12] MEDS: Furosemide 20 MG Tab PO SCH ×2 (09:14→13:25)
[2017-01-12] MEDS: Aspirin 81 MG Tab.EC PO SCH (09:15)
[2017-01-12] MEDS: Multivitamins,Therapeutic Tab PO SCH (09:15)
[2017-01-12] MEDS: predniSONE 20 MG Tab PO SCH (09:23)
[2017-01-12] MEDS: Escitalopram 10 MG Tab PO SCH (09:24)
[2017-01-12] MEDS: Budesonide 0.5 MG/2 ML Neb Susp INH SCH ×2 (09:56→20:30)
--- NOTE | 2017-01-12 13:05 | PCM.PN ---
- General Info Date of Service: 01/12/17 Subjective Update: Carter is a 86 y/o who resides now in a SNF. He as a PMH of severe COPD with c hronic hypoxic resp failure on home oxygen, CHF, urinary retention with cote, hypertension, anxiety, and DM with recurrent admissions for PNA/ COPD exacerbation. He presented with c/c of increased cough, sputum, hypotension, weakness, and [place]. pt was admitted for recurrent COPD / PNA today pt states his breathing seems back to baseline. cont cough- but improved. no increased sputum. no dizziness. + generalized weakness. pt notes diarrhea 4-6 times day and another 4 times at night. no blood in stool , no cramps. states present for past 2-3 days. no improvement with imodium. Functional Status: Reports: pain controlled, tolerating diet, ambulating, urinating - Review of Systems General: Reports: weakness HEENT: Reports: no symptoms Pulmonary: Reports: shortness of breath, cough, sputum Cardiovascular: Reports: dyspnea on exertion, edema (at baseline ) Gastrointestinal: Reports: Diarrhea - Patient Data Vitals - most recent: Last Vital Signs Temp 36.4 C 01/12/17 08:29 Pulse 74 01/12/17 09:56 Resp 20 01/12/17 08:29 BP 119/63 01/12/17 08:29 Pulse Ox 96 01/12/17 08:29 Weight - most recent: 78.199 kg I&O - last 24 hours: Intake & Output 01/11/17 01/12/17 01/12/17 22:59 06:59 14:59 Intake Total 840 497 Output Total 1475 1700 425 Balance -763 -5464 -611 Lab Results last 24 hrs: Laboratory Results - last 24 hr 01/11/17 01/11/17 01/12/17 Range/Units 16:40 20:54 06:20 Sodium 134 L (135-145) mmol/L Potassium 3.8 (3.6-5.0) mmol/L Chloride 93 L (101-111) mmol/L Carbon Dioxide 35.0 H (21.0-31.0) mmol/L Anion Gap 9.8 BUN 22 H (7-18) mg/dL Creatinine 1.0 (0.6-1.3) mg/dL Est Cr Clr Drug Dosing 50.23 mL/min Estimated GFR (MDRD) > 60 Glucose 121 H (74-105) mg/dL POC Glucose 343 H 359 H (83-110) mg/dl Calcium 8.6 (8.4-10.2) mg/dl B-Natriuretic Peptide 165 H (0-100) pg/ml 01/12/17 01/12/17 Range/Units 07:56 11:06 Sodium (135-145) mmol/L Potassium (3.6-5.0) mmol/L Chloride (101-111) mmol/L Carbon Dioxide (21.0-31.0) mmol/L Anion Gap BUN (7-18) mg/dL Creatinine (0.6-1.3) mg/dL Est Cr Clr Drug Dosing mL/min Estimated GFR (MDRD) Glucose (74-105) mg/dL POC Glucose 87 226 H (83-110) mg/dl Calcium (8.4-10.2) mg/dl B-Natriuretic Peptide (0-100) pg/ml Med Orders - Current: Current Medications Acetaminophen (Tylenol) 650 mg PO Q4H PRN PRN Reason: Pain (Mild 1-3)/fever Last Admin: 01/08/17 15:09 Dose: 650 mg Albuterol/Ipratropium (Duoneb 3.0-0.5 Mg/3 Ml) 3 ml NEB QIDRT PRN PRN Reason: sob Last Admin: 01/10/17 21:20 Dose: 3 ml Aspirin (Halfprin) 81 mg PO DAILY [facility] Last Admin: 01/12/17 09:15 Dose: 81 mg Budesonide (Pulmicort) 0.5 mg INH BIDRT [facility] Last Admin: 01/12/17 09:56 Dose: 0.5 mg Cholecalciferol (Vitamin D3) 1,000 units PO DAILY [facility] Last Admin: 01/12/17 09:14 Dose: 1,000 units Docusate Sodium (Colace) 100 mg PO BID PRN PRN Reason: Constipation Escitalopram Oxalate (Lexapro) 10 mg PO DAILY [facility] Last Admin: 01/12/17 09:24 Dose: 10 mg Ferrous Sulfate (Ferrous Sulfate) 325 mg PO WITHBREAKFAST [facility] Last Admin: 01/12/17 09:14 Dose: 325 mg Furosemide (Lasix) 20 mg PO TID [facility] Last Admin: 01/12/17 09:14 Dose: 20 mg Gabapentin (Neurontin) 300 mg PO BEDTIME [facility] Last Admin: 01/11/17 21:03 Dose: 300 mg Heparin Sodium (Porcine) (Heparin Sodium) 5,000 units SUBCUT Q8HR [facility] Last Admin: 01/12/17 05:42 Dose: 5,000 units Piperacillin Sod/Tazobactam (Sod 3.375 gm/ Sodium Chloride) 100 mls @ 200 mls/ hr IV Q6H [facility] Last Admin: 01/12/17 05:38 Dose: 100 mls/hr Levofloxacin/Dextrose 750 mg/ (Premix) 150 mls @ 100 mls/hr IV Q48H [facility] Last Admin: 01/11/17 22:59 Dose: 100 mls/hr Insulin Aspart (Novolog) 8 unit SUBCUT TIDAC [facility] Last Admin: 01/12/17 12:42 Dose: 8 units Insulin Aspart (Novolog) 0 unit SUBCUT QIDACANDBED [facility] PRN Reason: Protocol Last Admin: 01/12/17 12:40 Dose: 4 units Insulin Detemir (Levemir) 24 unit SUBCUT BEDTIME [facility] Last Admin: 01/11/17 21:02 Dose: 24 units Lorazepam (Ativan) 0.5 mg PO Q4H PRN PRN Reason: Anxiety Last Admin: 01/10/17 23:45 Dose: 0.5 mg Multivitamins (Thera) 1 each PO DAILY [facility] Last Admin: 01/12/17 09:15 Dose: 1 each (Formoterol [ Perforomist] 20 Mcg) Own Med 20 mcg NEB BID [facility] Last Admin: 01/12/17 09:56 Dose: 20 mcg Ondansetron HCl (Zofran Odt) 4 mg PO Q6H PRN PRN Reason: nausea, able to take PO Ondansetron HCl (Zofran) 4 mg IVPUSH Q6H PRN PRN Reason: Nausea/Vomiting Pantoprazole Sodium (Protonix) 40 mg PO ACBREAKFAST [facility] Last Admin: 01/12/17 05:42 Dose: 40 mg Potassium Chloride (Klor-Con 10) 10 meq PO TIDMEALS [facility] Last Admin: 01/12/17 09:14 Dose: 10 meq Prednisone (Prednisone) 40 mg PO WITHBREAKFAST [facility] Last Admin: 01/12/17 09:23 Dose: 40 mg Simvastatin (Zocor) 40 mg PO BEDTIME [facility] Last Admin: 01/11/17 21:03 Dose: 40 mg Sodium Chloride (Saline Flush) 10 ml FLUSH ASDIRECTED PRN PRN Reason: Keep Vein Open Last Admin: 01/12/17 05:41 Dose: 10 ml Zolpidem Tartrate (Ambien) 5 mg PO BEDTIME PRN PRN Reason: Sleep Discontinued Medications Aspirin (Ecotrin) 81 mg PO DAILY [facility] Last Admin: 01/05/17 10:34 Dose: Not Given Aspirin (Aspirin) Confirm Administered Dose 81 mg .ROUTE .STK-MED ONE Stop: 01/05/17 08:32 Last Admin: 01/05/17 10:33 Dose: 81 mg Budesonide (Pulmicort) 0.5 mg INH BID [place] Last Admin: 01/05/17 10:45 Dose: 0.5 mg Furosemide (Lasix) 40 mg PO BID [place] Furosemide (Lasix) 20 mg PO BIDDIURETIC [place] Last Admin: 01/07/17 09:03 Dose: 20 mg Furosemide (Lasix) 20 mg PO TID [place] Last Admin: 01/09/17 10:18 Dose: 20 mg Furosemide (Lasix) 20 mg PO BIDDIURETIC [place] Last Admin: 01/11/17 08:20 Dose: 20 mg Glimepiride (Amaryl) 1 mg PO WITHBREAKFAST [facility] Last Admin: 01/10/17 08:02 Dose: 1 mg Levofloxacin/Dextrose 500 mg/ (Premix) 100 mls @ 100 mls/hr IV ONETIME ONE Stop: 01/04/17 22:19 Last Admin: 01/04/17 23:13 Dose: 100 mls/hr Piperacillin Sod/Tazobactam (Sod 3.375 gm/ Sodium Chloride) 100 mls @ 200 mls/ hr IV ONETIME ONE Stop: 01/04/17 21:49 Last Admin: 01/05/17 00:18 Dose: 200 mls/hr Vancomycin HCl 1.5 gm/ Sodium (Chloride) 500 mls @ 334 mls/hr IV ONETIME ONE Stop: 01/04/17 22:49 Last Admin: 01/04/17 21:37 Dose: 334 mls/hr Levofloxacin/Dextrose 750 mg/ (Premix) 150 mls @ 100 mls/hr IV DAILY [place] Sodium Chloride (Normal Saline) 500 mls @ 500 mls/hr IV .BOLUS [facility] Albumin Human (Flexbumin 25%) 12.5 gm in 50 mls @ 100 mls/hr IV ONETIME ONE Stop: 01/04/17 23:11 Last Admin: 01/05/17 00:53 Dose: 100 mls/hr Levofloxacin/Dextrose 750 mg/ (Premix) 150 mls @ 100 mls/hr IV Q24H [facility] Last Admin: 01/09/17 22:25 Dose: 100 mls/hr Levofloxacin/Dextrose 750 mg/ (Premix) 150 mls @ 100 mls/hr IV Q48H [facility] Insulin Aspart (Novolog) 0 unit SUBCUT ONETIME ONE Stop: 01/10/17 21:32 Last Admin: 01/10/17 21:38 Dose: 12 units Insulin Detemir (Levemir) 15 unit SUBCUT BEDTIME [facility] Last Admin: 01/05/17 23:06 Dose: 8 units Insulin Detemir (Levemir) 20 unit SUBCUT BEDTIME [facility] Last Admin: 01/08/17 21:57 Dose: 20 units Insulin Detemir (Levemir) 30 unit SUBCUT BEDTIME [facility] Last Admin: 01/09/17 22:21 Dose: 30 units Lisinopril (Prinivil) 5 mg PO DAILY [facility] Loperamide HCl (Imodium) 2 mg PO Q4H PRN PRN Reason: Diarrhea Last Admin: 01/12/17 02:32 Dose: 2 mg Methylprednisolone Sodium Succinate (Solu-Medrol) 40 mg IVPUSH Q8H [facility] Last Admin: 01/05/17 00:15 Dose: 40 mg Methylprednisolone Sodium Succinate (Solu-Medrol) 40 mg IVPUSH Q8H [facility] Last Admin: 01/06/17 08:28 Dose: 40 mg Methylprednisolone Sodium Succinate (Solu-Medrol) 40 mg IVPUSH Q12H [facility] Last Admin: 01/07/17 05:19 Dose: 40 mg Methylprednisolone Sodium Succinate (Solu-Medrol) 40 mg IVPUSH DAILY [facility] Last Admin: 01/09/17 10:13 Dose: 40 mg Piperacillin Sod/Tazobactam Sod (Zosyn) Confirm Administered Dose 3.375 gm .ROUTE .STK-MED ONE Stop: 01/05/17 06:09 Last Admin: 01/05/17 06:26 Dose: Not Given Potassium Chloride (Klor-Con 10) 10 meq PO TID [place] Last Admin: 01/05/17 08:51 Dose: 10 meq Vancomycin HCl (Pharmacy To Dose - Vancomycin) 1 dose .XX ONETIME ONE Stop: 01/04/17 21:57 Last Admin: 01/04/17 23:19 Dose: Not Given - Exam Quality Assessment: supplemental oxygen, urine catheter General: alert, oriented, cooperative, no acute distress Lungs: Decreased breath sounds, Crackles (bases ) Cardiovascular: regular rate, regular rhythm Abdomen: bowel sounds present, soft, no tenderness, other (hyperactive BS ) Extremities: edema (2+ edema; TUBigrip in place ) Skin: warm Wound/Incisions: other (right heel decub/pressure ulcer- not visualized ) Neurological: no new focal deficit Psy/Mental Status: alert, normal affect - Problem List & Annotations (1) Pneumonia SNOMED Code(s): 698738306 Code(s): J18.9 - PNEUMONIA, UNSPECIFIED ORGANISM Status: Acute Current Visit: Yes Qualifiers: Pneumonia type: due to unspecified organism Laterality: bilateral Lung location: lower lobe of lung Qualified Code(s): J18.9 - Pneumonia, unspecified organism (2) CHF, Congestive heart failure SNOMED Code(s): 47185267 Code(s): I50.9 - HEART FAILURE, UNSPECIFIED Status: Acute Priority: Medium Current Visit: Yes (3) Diarrhea SNOMED Code(s): 72509297 Code(s): R19.7 - DIARRHEA, UNSPECIFIED Status: Acute Priority: High Current Visit: Yes (4) Weakness SNOMED Code(s): 48792771 Code(s): R53.1 - WEAKNESS Status: Acute Priority: Medium Current Visit : Yes (5) Hypoxemia SNOMED Code(s): 162684343 Code(s): R09.02 - HYPOXEMIA Status: Chronic Priority: Medium Current Visit: No - Problem List Review Problem List Initiated/Reviewed/Updated: Yes - My Orders Last 24 Hours: My Active Orders 01/12/17 11:00 C DIFFICILE TOXIN BY PCR [MREF] Routine - Plan Plan:: Acute on chronic hypoxemic respiratory failure - likely multifactorial due to COPD, pneumonia, effusion Baseline oxygen need is about 2-3 L per minute - back to baseline Supplement oxygen as needed discussed the option of thoracentesis on Thursday but at this point the patient was not interested in this, would like to try to stay on medical therapy -will repeat CXR Pneumonia with sepsis (hypotension, tachycardia, leukocytosis) POA Concern for gram-negative organisms, health care related pneumonia blood culture -negative sputum culture Negative for now -initially treated with Zosyn, vancomycin, levofloxacin - now just levaquin and zosyn -will repeat CXR Acute COPD exacerbation improving, - feels back to baseline now on prednisone 40mg- baseline is 5 mg daily supplemental oxygen as needed Use DuoNeb as needed Continue Pulmicort/formoterol twice a day Diarrhea -high risk for c diff -d/c imodium/ check for c diff -follow lytes Hypotension - present on admission - with h/o HTN DDX - dehydration, adrenal insufficiency, sepsis resolved s/p IV fluids, albumin, antibx and holding lasix pt now back on low dose lisinopril Anxiety Use Ativan as needed cont lexapro 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 Continue Cote catheter -need to document when last changed Diabetes diffucult to control due to steroids cont glyburide, NovoLog with meals, levemir Follow blood sugars and new supplement and insulin and hypoglycemia protocol as needed 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
[2017-01-12] MEDS ORDERED: Furosemide 20 MG Tab PO SCH (20:00)
[2017-01-12] MEDS: Gabapentin 300 MG Cap PO SCH (22:56)
[2017-01-12] MEDS: Insulin Detemir 100 Units/ML 3 ML Pen SUBCUT SCH (22:56)
[2017-01-12] MEDS: Simvastatin 40 MG Tab PO SCH (23:01)
[2017-01-13] MEDS: Piperacillin/Tazobactam 3.375 GM in Sodium Chloride 0.9% 100 ML IV SCH ×3 (00:32→11:53)
[2017-01-13 07:09] LABS: CHLORIDE,CL 93 mmol/L (101-111); SODIUM,NA 136 mmol/L (135-145)
[2017-01-13] MEDS: Heparin Sodium 5,000 Units/ML Vial SUBCUT SCH (07:15)
[2017-01-13] MEDS: Pantoprazole 40 MG Tab.CR PO SCH (07:16)
[2017-01-13 07:53] VITALS: BP 119/57
[2017-01-13] MEDS ORDERED: Furosemide 20 MG Tab PO SCH (08:00)
[2017-01-13] MEDS: Insulin Aspart 100 Units/ML 3 ML Pen SUBCUT SCH ×4 (08:49→12:15)
[2017-01-13] MEDS: Potassium Chloride 10 MEQ Tab.ER PO SCH ×2 (10:35→12:21)
[2017-01-13] MEDS: Cholecalciferol (Vitamin D3) 400 Unit Tab PO SCH (10:36)
[2017-01-13] MEDS: Multivitamins,Therapeutic Tab PO SCH (10:37)
[2017-01-13] MEDS: Ferrous Sulfate 325 MG Tab PO SCH (10:37)
[2017-01-13] MEDS: Aspirin 81 MG Tab.EC PO SCH (10:37)
[2017-01-13] MEDS: Escitalopram 10 MG Tab PO SCH (10:37)
[2017-01-13] MEDS: predniSONE 20 MG Tab PO SCH (10:42)
--- NOTE | 2017-01-13 13:10 | PCM.DCSUM1 ---
Discharge Summary - Hospital Course HPI Initial Comments: the patient is an 86-year-old gentleman with a history of COPD, chronic hypoxemic respiratory failure, home oxygen and steroid therapy, CHF, recurrent pleural effusion, recurrent pneumonia. Mr. Brown lives in a fci and today he was noted to require higher doses of oxygen to keep his saturations above 90%, noted to have severe hypotension. The patient was brought into the hospital emergency room. He is complaining of cough, sputum production, chest pain with cough. No fever, no chills. No diarrhea, has chronic Cote catheter. - Discharge Data Discharge Date: 01/13/17 Discharge Disposition: DC/Tfer to SNF 03 Condition: Fair - Discharge Diagnosis/Problem(s) (1) Pneumonia SNOMED Code(s): 388729682 ICD Code: J18.9 - PNEUMONIA, UNSPECIFIED ORGANISM Status: Acute Current Visit: Yes Qualifiers: Pneumonia type: due to unspecified organism Laterality: bilateral Lung location: lower lobe of lung Qualified Code(s): J18.9 - Pneumonia, unspecified organism (2) CHF, Congestive heart failure SNOMED Code(s): 98305788 ICD Code: I50.9 - HEART FAILURE, UNSPECIFIED Status: Acute Priority: Medium Current Visit: Yes (3) Diarrhea SNOMED Code(s): 59397566 ICD Code: R19.7 - DIARRHEA, UNSPECIFIED Status: Acute Priority: High Current Visit: Yes (4) Weakness SNOMED Code(s): 70885543 ICD Code: R53.1 - WEAKNESS Status: Acute Priority: Medium Current Visit : Yes (5) Hypoxemia SNOMED Code(s): 673388261 ICD Code: R09.02 - HYPOXEMIA Status: Chronic Priority: Medium Current Visit: No - Patient Summary/Data Consults: Consultations 01/05/17 10:53 OT Evaluation and Treatment [CONS] Routine PT Evaluation and Treatment [CONS] Routine Hospital Course: Acute on chronic hypoxemic respiratory failure - resolved- pt now back to baseline - likely multifactorial due to COPD, pneumonia, effusion Baseline oxygen need is about 2-3 L per minute - pt is now back to baseline discussed the option of thoracentesis on admit - but at this point the patient was not interested in this, would like to try to stay on medical therapy -repeat CXR on 01/12/17 revealed interval improvement Pneumonia with sepsis (hypotension, tachycardia, leukocytosis) POA Concern for gram-negative organisms, health care related pneumonia blood culture -negative sputum culture Negative -initially treated with Zosyn, vancomycin, levofloxacin - then transitioned to levaquin and zosyn. pt has completed 9 days of antibx so has completed course and will not d/c on PO antibx Acute COPD exacerbation - resolved pt states he feels back to baseline now on prednisone 40mg - will d/c on tapering doses. will increase his baseline dose from 5 mg to 10 mg since he seems to rebound near end of tapers or shortly after completed taper cont supplemental oxygen as needed resume nebs as per prior Diarrhea - improving -high risk for c diff but did test NEGATIVE Hypotension - present on admission - with h/o HTN DDX - dehydration, adrenal insufficiency, sepsis resolved s/p IV fluids, albumin, antibx and holding lasix pt now back on low dose lisinopril will add holding parameter on discharge- hold if sysotlic less than 110 -will reduce dose of lasix on discharge as pt appeared dehydrated on admit Anxiety Use Ativan as needed cont lexapro 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 with mild acute exacerbation per ECHO- ejection fraction of 55%, grade 1 diastolic dysfunction -BNP 165 on discharge; stable weight cont Lasix but will reduce dose as pt was dehydratated and hypotensive on admit - will give 40 mg daily and an extra 20 mg on thursday/ CKD -creatinine 1.0 GFR -renal doses as needed avoid NSAIDS Weakness -cont PT/OT - refer for eval upon return to SNF right heel pressures ulcer -cont daily dressing changes - Patient Instructions Diet: Diabetic Diet Activity: As Tolerated Driving: Do Not Drive Showering/Bathing: May Shower Notify Provider of: Fever, Nausea and/or Vomiting Other/Special Instructions: f/u with Sandy Harris NP in one week. BMP on 01/16/17 to monitor renal function , alkalosis, azotemia - Discharge Plan Prescriptions/Med Rec: Furosemide [Lasix] 40 mg PO DAILY #30 tablet Furosemide [Lasix] 20 mg PO DAILY #8 tablet Prednisone [IJP: Prednisone] 10 mg PO DAILY #19 tab Prednisone [IJD: Prednisone] 10 mg PO DAILY #30 tab Home Medications: Home Meds Albuterol [Ventolin HFA] 2 puff INH Q4H PRN 04/27/14 [History] Budesonide [Pulmicort] 0.5 mg IH BID 04/27/14 [History] Cholecalciferol (Vitamin D3) [Vitamin D3] 1,000 units PO DAILY 04/27/14 [History ] Formoterol [Perforomist] 20 mcg NEB BID 04/27/14 [History] Gabapentin [Neurontin] 300 mg PO BEDTIME 04/27/14 [History] Multivitamin [Multivitamins] 1 each PO DAILY 04/27/14 [History] Nitroglycerin [Nitrostat] 0.4 mg SL ASDIRECTED PRN 04/27/14 [History] Simvastatin [Zocor] 40 mg PO BEDTIME 04/27/14 [History] Acetaminophen [Tylenol] 650 mg PO Q4HR PRN 04/05/15 [History] Aspirin [Ecotrin] 81 mg PO DAILY 04/05/15 [History] Ferrous Sulfate 325 mg PO WITHBREAKFAST 04/05/15 [History] Pantoprazole [Protonix] 40 mg PO ACBREAKFAST 04/05/15 [History] Glimepiride 1 mg PO WITHBREAKFAST 10/20/16 [History] Albuterol/Ipratropium [DuoNeb 3.0-0.5 MG/3 ML] 3 ml NEB QIDRT PRN #120 neb 12/08 [Rx] Escitalopram [Lexapro] 10 mg PO DAILY #30 tablet 12/08/16 [Rx] Glucagon HCl 1 mg IM ASDIRECTED PRN 12/11/16 [History] Magnesium Hydroxide [Milk of Magnesia] 10 ml PO DAILY PRN 12/11/16 [History] Potassium Chloride [Klor-Con 10] 10 meq PO TID 12/11/16 [History] Insulin Aspart [NovoLOG] 8 unit SUBCUT TIDAC #1 pen 12/15/16 [Rx] Insulin Detemir [Levemir] 15 unit SUBCUT BEDTIME #1 pen 12/15/16 [Rx] LORazepam [Ativan] 0.5 mg PO ASDIRECTED PRN 01/04/17 [History] Furosemide [Lasix] 20 mg PO DAILY #8 tablet 01/13/17 [Rx] Furosemide [Lasix] 40 mg PO DAILY #30 tablet 01/13/17 [Rx] Lisinopril [Prinivil] 5 mg PO DAILY #30 tablet 01/13/17 [Rx] Prednisone [IJD: Prednisone] 10 mg PO DAILY #30 tab 01/13/17 [Rx] Prednisone [IJP: Prednisone] 10 mg PO DAILY #19 tab 01/13/17 [Rx] - General Info Date of Service: 01/13/17 Subjective Update: pt states his breathing, cough, sputum are all at baseline. reports stools have improved- now formed and less frequent. no n/v. rare abd cramps. tolerating diet. Has been up with assist. Feels ready to discharge- in fact is requesting d/c Functional Status: Reports: pain controlled, tolerating diet, urinating (cote ) - Review of Systems General: Reports: No Symptoms HEENT: Reports: no symptoms Pulmonary: Reports: shortness of breath, cough, sputum Cardiovascular: Reports: Dyspnea on Exertion, Edema Gastrointestinal: Reports: Diarrhea (resolving ) Genitourinary: Reports: no symptoms Musculoskeletal: Reports: no symptoms Skin: Reports: no symptoms Neurological: Reports: No Symptoms - Patient Data Vitals - Most Recent: Last Vital Signs Temp 36.4 C 01/13/17 07:00 Pulse 62 01/13/17 07:00 Resp 20 01/13/17 07:00 BP 119/57 L 01/13/17 07:00 Pulse Ox 95 01/13/17 07:00 Weight - Most Recent: 76.294 kg I&O - Last 24 hours: Intake & Output 01/12/17 01/13/17 01/13/17 22:59 06:59 14:59 Intake Total 290 225 108 Output Total 1650 1800 Balance 290 [phone] Lab Results - Last 24 hrs: Laboratory Results - last 24 hr 01/12/17 01/12/17 01/13/17 Range/Units 16:52 21:11 06:40 WBC 8.8 (5.0-10.0) 10^3/uL RBC 3.70 L (4.6-6.2) 10^6/uL Hgb 10.2 L (14.0-18.0) g/dL Hct 32.5 L (40.0-54.0) % MCV 87.8 (80-100) fL MCH 27.6 (27.0-34.0) pg MCHC 31.4 L (33.0-35.0) g/dL Plt Count 277 (150-450) 10^3/uL Neut % (Auto) 66.0 (42.2-75.2) % Lymph % (Auto) 23.3 (20.5-50.1) % [place] % (Auto) 10.1 H (2-8) % Eos % (Auto) 0.5 L (1.0-3.0) % Baso % (Auto) 0.1 (0.0-1.0) % Add Manual Diff Yes Neutrophils % (Manual) 59 % Lymphocytes % (Manual) 33 % Monocytes % (Manual) 8 % Sodium (135-145) mmol/L Potassium (3.6-5.0) mmol/L Chloride (101-111) mmol/L Carbon Dioxide (21.0-31.0) mmol/L Anion Gap BUN (7-18) mg/dL Creatinine (0.6-1.3) mg/dL Est Cr Clr Drug Dosing mL/min Estimated GFR (MDRD) Glucose (74-105) mg/dL POC Glucose 342 H 387 H (83-110) mg/dl Calcium (8.4-10.2) mg/dl 01/13/17 01/13/17 01/13/17 Range/Units 06:40 07:34 10:53 WBC (5.0-10.0) 10^3/uL RBC (4.6-6.2) 10^6/uL Hgb (14.0-18.0) g/dL Hct (40.0-54.0) % MCV (80-100) fL MCH (27.0-34.0) pg MCHC (33.0-35.0) g/dL Plt Count (150-450) 10^3/uL Neut % (Auto) (42.2-75.2) % Lymph % (Auto) (20.5-50.1) % [place] % (Auto) (2-8) % Eos % (Auto) (1.0-3.0) % Baso % (Auto) (0.0-1.0) % Add Manual Diff Neutrophils % (Manual) % Lymphocytes % (Manual) % Monocytes % (Manual) % Sodium 136 (135-145) mmol/L Potassium 4.0 (3.6-5.0) mmol/L Chloride 93 L (101-111) mmol/L Carbon Dioxide 37.0 H (21.0-31.0) mmol/L Anion Gap 10.0 BUN 29 H (7-18) mg/dL Creatinine 1.0 (0.6-1.3) mg/dL Est Cr Clr Drug Dosing 50.23 mL/min Estimated GFR (MDRD) > 60 Glucose 116 H (74-105) mg/dL POC Glucose 102 222 H (83-110) mg/dl Calcium 8.9 (8.4-10.2) mg/dl [facility] Results - Last 24 hrs: Microbiology 01/12/17 11:00 Clostridium difficile (PCR) - Final Stool / Feces - Stool, Liquid Med Orders - Current: Current Medications Acetaminophen (Tylenol) 650 mg PO Q4H PRN PRN Reason: Pain (Mild 1-3)/fever Last Admin: 01/08/17 15:09 Dose: 650 mg Albuterol/Ipratropium (Duoneb 3.0-0.5 Mg/3 Ml) 3 ml NEB QIDRT PRN PRN Reason: sob Last Admin: 01/10/17 21:20 Dose: 3 ml Aspirin (Halfprin) 81 mg PO DAILY [facility] Last Admin: 01/13/17 10:37 Dose: 81 mg Budesonide (Pulmicort) 0.5 mg INH BIDRT [facility] Last Admin: 01/12/17 20:30 Dose: 0.5 mg Cholecalciferol (Vitamin D3) 1,000 units PO DAILY [facility] Last Admin: 01/13/17 10:36 Dose: 1,000 units Docusate Sodium (Colace) 100 mg PO BID PRN PRN Reason: Constipation Escitalopram Oxalate (Lexapro) 10 mg PO DAILY [facility] Last Admin: 01/13/17 10:37 Dose: 10 mg Ferrous Sulfate (Ferrous Sulfate) 325 mg PO WITHBREAKFAST [facility] Last Admin: 01/13/17 10:37 Dose: 325 mg Furosemide (Lasix) 20 mg PO SuTuThSa@0800,1400 [facility] Last Admin: 01/13/17 10:37 Dose: 20 mg Furosemide (Lasix) 20 mg PO MoWeFr@0800,2000 [facility] Last Admin: 01/12/17 22:55 Dose: 20 mg Furosemide (Lasix) 20 mg PO MoWeFr@1400 [facility] Gabapentin (Neurontin) 300 mg PO BEDTIME [facility] Last Admin: 01/12/17 22:56 Dose: 300 mg Heparin Sodium (Porcine) (Heparin Sodium) 5,000 units SUBCUT Q8HR [facility] Last Admin: 01/13/17 07:15 Dose: 5,000 units Piperacillin Sod/Tazobactam (Sod 3.375 gm/ Sodium Chloride) 100 mls @ 200 mls/ hr IV Q6H [facility] Last Admin: 01/13/17 11:53 Dose: 100 mls/hr Levofloxacin/Dextrose 750 mg/ (Premix) 150 mls @ 100 mls/hr IV Q48H [facility] Last Admin: 01/11/17 22:59 Dose: 100 mls/hr Insulin Aspart (Novolog) 0 unit SUBCUT QIDACANDBED [facility] PRN Reason: Protocol Last Admin: 01/13/17 12:13 Dose: 4 units Insulin Aspart (Novolog) 12 unit SUBCUT TIDAC [facility] Last Admin: 01/13/17 12:15 Dose: 12 units Insulin Detemir (Levemir) 24 unit SUBCUT BEDTIME [facility] Last Admin: 01/12/17 22:56 Dose: 24 units Lorazepam (Ativan) 0.5 mg PO Q4H PRN PRN Reason: Anxiety Last Admin: 01/10/17 23:45 Dose: 0.5 mg Multivitamins (Thera) 1 each PO DAILY [facility] Last Admin: 01/13/17 10:37 Dose: 1 each (Formoterol [ Perforomist] 20 Mcg) Own Med 20 mcg NEB BID [facility] Last Admin: 01/12/17 22:56 Dose: 20 mcg Ondansetron HCl (Zofran Odt) 4 mg PO Q6H PRN PRN Reason: nausea, able to take PO Ondansetron HCl (Zofran) 4 mg IVPUSH Q6H PRN PRN Reason: Nausea/Vomiting Pantoprazole Sodium (Protonix) 40 mg PO ACBREAKFAST [facility] Last Admin: 01/13/17 07:16 Dose: 40 mg Potassium Chloride (Klor-Con 10) 10 meq PO TIDMEALS [facility] Last Admin: 01/13/17 12:21 Dose: 10 meq Prednisone (Prednisone) 40 mg PO WITHBREAKFAST [place] Last Admin: 01/13/17 10:42 Dose: 40 mg Simvastatin (Zocor) 40 mg PO BEDTIME [place] Last Admin: 01/12/17 23:01 Dose: 40 mg Sodium Chloride (Saline Flush) 10 ml FLUSH ASDIRECTED PRN PRN Reason: Keep Vein Open Last Admin: 01/12/17 18:19 Dose: 10 ml Zolpidem Tartrate (Ambien) 5 mg PO BEDTIME PRN PRN Reason: Sleep Discontinued Medications Aspirin (Ecotrin) 81 mg PO DAILY [facility] Last Admin: 01/05/17 10:34 Dose: Not Given Aspirin (Aspirin) Confirm Administered Dose 81 mg .ROUTE .STK-MED ONE Stop: 01/05/17 08:32 Last Admin: 01/05/17 10:33 Dose: 81 mg Budesonide (Pulmicort) 0.5 mg INH BID [facility] Last Admin: 01/05/17 10:45 Dose: 0.5 mg Furosemide (Lasix) 40 mg PO BID [place] Furosemide (Lasix) 20 mg PO BIDDIURETIC [facility] Last Admin: 01/07/17 09:03 Dose: 20 mg Furosemide (Lasix) 20 mg PO TID [facility] Last Admin: 01/09/17 10:18 Dose: 20 mg Furosemide (Lasix) 20 mg PO BIDDIURETIC [facility] Last Admin: 01/11/17 08:20 Dose: 20 mg Furosemide (Lasix) 20 mg PO TID [facility] Last Admin: 01/12/17 13:25 Dose: 20 mg Glimepiride (Amaryl) 1 mg PO WITHBREAKFAST [facility] Last Admin: 01/10/17 08:02 Dose: 1 mg Levofloxacin/Dextrose 500 mg/ (Premix) 100 mls @ 100 mls/hr IV ONETIME ONE Stop: 01/04/17 22:19 Last Admin: 01/04/17 23:13 Dose: 100 mls/hr Piperacillin Sod/Tazobactam (Sod 3.375 gm/ Sodium Chloride) 100 mls @ 200 mls/ hr IV ONETIME ONE Stop: 01/04/17 21:49 Last Admin: 01/05/17 00:18 Dose: 200 mls/hr Vancomycin HCl 1.5 gm/ Sodium (Chloride) 500 mls @ 334 mls/hr IV ONETIME ONE Stop: 01/04/17 22:49 Last Admin: 01/04/17 21:37 Dose: 334 mls/hr Levofloxacin/Dextrose 750 mg/ (Premix) 150 mls @ 100 mls/hr IV DAILY [facility] Sodium Chloride (Normal Saline) 500 mls @ 500 mls/hr IV .BOLUS [place] Albumin Human (Flexbumin 25%) 12.5 gm in 50 mls @ 100 mls/hr IV ONETIME ONE Stop: 01/04/17 23:11 Last Admin: 01/05/17 00:53 Dose: 100 mls/hr Levofloxacin/Dextrose 750 mg/ (Premix) 150 mls @ 100 mls/hr IV Q24H [facility] Last Admin: 01/09/17 22:25 Dose: 100 mls/hr Levofloxacin/Dextrose 750 mg/ (Premix) 150 mls @ 100 mls/hr IV Q48H [facility] Insulin Aspart (Novolog) 8 unit SUBCUT TIDAC [facility] Last Admin: 01/12/17 17:47 Dose: 8 units Insulin Aspart (Novolog) 0 unit SUBCUT ONETIME ONE Stop: 01/10/17 21:32 Last Admin: 01/10/17 21:38 Dose: 12 units Insulin Detemir (Levemir) 15 unit SUBCUT BEDTIME [facility] Last Admin: 01/05/17 23:06 Dose: 8 units Insulin Detemir (Levemir) 20 unit SUBCUT BEDTIME [facility] Last Admin: 01/08/17 21:57 Dose: 20 units Insulin Detemir (Levemir) 30 unit SUBCUT BEDTIME [facility] Last Admin: 01/09/17 22:21 Dose: 30 units Lisinopril (Prinivil) 5 mg PO DAILY [facility] Loperamide HCl (Imodium) 2 mg PO Q4H PRN PRN Reason: Diarrhea Last Admin: 01/12/17 02:32 Dose: 2 mg Methylprednisolone Sodium Succinate (Solu-Medrol) 40 mg IVPUSH Q8H [facility] Last Admin: 01/05/17 00:15 Dose: 40 mg Methylprednisolone Sodium Succinate (Solu-Medrol) 40 mg IVPUSH Q8H [facility] Last Admin: 01/06/17 08:28 Dose: 40 mg Methylprednisolone Sodium Succinate (Solu-Medrol) 40 mg IVPUSH Q12H [facility] Last Admin: 01/07/17 05:19 Dose: 40 mg Methylprednisolone Sodium Succinate (Solu-Medrol) 40 mg IVPUSH DAILY [facility] Last Admin: 01/09/17 10:13 Dose: 40 mg Piperacillin Sod/Tazobactam Sod (Zosyn) Confirm Administered Dose 3.375 gm .ROUTE .STK-MED ONE Stop: 01/05/17 06:09 Last Admin: 01/05/17 06:26 Dose: Not Given Potassium Chloride (Klor-Con 10) 10 meq PO TID [facility] Last Admin: 01/05/17 08:51 Dose: 10 meq Vancomycin HCl (Pharmacy To Dose - Vancomycin) 1 dose .XX ONETIME ONE Stop: 01/04/17 21:57 Last Admin: 01/04/17 23:19 Dose: Not Given - Exam Quality Assessment: Reports: supplemental oxygen, urine catheter General: Reports: alert, oriented, cooperative, no acute distress HEENT: Reports: Mucous membr. moist/pink Lungs: Reports: Normal respiratory effort, Decreased breath sounds, Rales Cardiovascular: Reports: Regular Rate, Regular Rhythm Abdomen: Reports: bowel sounds present, soft, no tenderness Extremities: Reports: edema ( R > L 2+ pitting on right 1-2 on left ) Skin: Reports: warm Wound/Incisions: Reports: other (has ) Neurological: Reports: no new focal deficit, other (lower extremeity bilateral weakness ) Psy/Mental Status: Reports: alert, depressed *Q Meaningful Use (DIS) - VTE *Q VTE Criteria *Q: - Stroke *Q Stroke Criteria *Q: - AMI *Q AMI Criteria *Q:
[2017-01-14] MEDS ORDERED: Furosemide 20 MG Tab PO SCH (14:00)
== END 2017-01-13 13:20 | DRG 871 ==
LOC: DL.ED 20:22 → UNDOADMIN 21:52 → DL.MS 21:52 → UNDOADMIN 21:54 → DL.MS 21:54
PROVIDERS: ADMIT Internal Medicine; ATTEND Internal Medicine
DX: A41.9 Sepsis, unspecified organism (principal); J18.9 Pneumonia, unspecified organism; I50.33 Acute on chronic diastolic (congestive) heart failure; J96.21 Acute and chronic respiratory failure with hypoxia; I13.0 Hypertensive heart and chronic kidney disease with heart failure and stage 1 through stage 4 chronic kidney disease, or unspecified chronic kidney disease; J44.1 Chronic obstructive pulmonary disease with (acute) exacerbation; E11.621 Type 2 diabetes mellitus with foot ulcer; E11.42 Type 2 diabetes mellitus with diabetic polyneuropathy; Z66 Do not resuscitate; Z87.891 Personal history of nicotine dependence; Z99.81 Dependence on supplemental oxygen; N18.9 Chronic kidney disease, unspecified; Z79.4 Long term (current) use of insulin; L89.619 Pressure ulcer of right heel, unspecified stage; R19.7 Diarrhea, unspecified; N40.1 Benign prostatic hyperplasia with lower urinary tract symptoms; R33.8 Other retention of urine; Z85.46 Personal history of malignant neoplasm of prostate; H91.90 Unspecified hearing loss, unspecified ear; H54.7 Unspecified visual loss; M19.90 Unspecified osteoarthritis, unspecified site; Z87.01 Personal history of pneumonia (recurrent); Z96.649 Presence of unspecified artificial hip joint; Z79.82 Long term (current) use of aspirin; Z79.52 Long term (current) use of systemic steroids; Z88.8 Allergy status to other drugs, medicaments and biological substances
CPT/HCPCS: 36415; 71010; 80053; 83605; 85025; 87040 ×2; 87070; 87205; 96365; 99284; 99285; J3370; J7040; 80048; 82962; 83880; 84484; 87493; 94010; 94640; 94667; 97110-GP; 97116-GP; 97161-GP; 97165-GO; A9270-GY; J1644; J1815-GY; J1956; J2543; J2920; J7050; P9047

== ENCOUNTER 2017-02-03 10:04 | Inpatient (IN) | payer MEDICARE, BC ==
--- NOTE | 2017-02-03 09:45 | EDM.PDOC ---
ED HISTORY OF PRESENT ILLNESS - General Chief Complaint: Respiratory Problem Stated Complaint: IN BY AMBULANCE Time Seen by Provider: 02/03/17 09:45 Source of Information: Reports: Patient, EMS, intermediate records, Old records , RN, RN notes reviewed History Limitations: Reports: No limitations - History of Present Illness INITIAL COMMENTS - FREE TEXT/NARRATIVE: Arrives by ambulance from [place] with reports of low BP, low oxygen saturation, no appetite, and generalized weakness per NH staff report. Pt denies any breathing difficulty. Pt c/o no appetite and fatigue with generalized weakness. Severity: severe Location, General: Reports: generalized Improves with: Reports: None Worsens with: Reports: None Context, General: Denies: Activity, Exercise, Lifting, Sick contact, Trauma Associated Symptoms (General): Reports: no other symptoms Treatments AIRLINE HOSTESS: Reports: Breathing treatments, IV/IO, Other medication(s), Oxygen - Related Data Allergies/ADRs: Allergies Allergy/AdvReac Type Severity Reaction Status Date / Time roflumilast [From [facility]] Allergy Cannot Verified 01/04/17 20:31 Remember theophylline Allergy Cannot Verified 01/04/17 20:31 Remember Home Meds: Home Meds Albuterol [Ventolin HFA] 2 puff INH Q4H PRN 04/27/14 [History] Budesonide [Pulmicort] 0.5 mg IH BID 04/27/14 [History] Cholecalciferol (Vitamin D3) [Vitamin D3] 1,000 units PO DAILY 04/27/14 [History ] Formoterol [Perforomist] 20 mcg NEB BID 04/27/14 [History] Gabapentin [Neurontin] 300 mg PO BEDTIME 04/27/14 [History] Multivitamin [Multivitamins] 1 each PO DAILY 04/27/14 [History] Nitroglycerin [Nitrostat] 0.4 mg SL ASDIRECTED PRN 04/27/14 [History] Simvastatin [Zocor] 40 mg PO BEDTIME 04/27/14 [History] Acetaminophen [Tylenol] 650 mg PO Q4HR PRN 04/05/15 [History] Aspirin [Ecotrin] 81 mg PO DAILY 04/05/15 [History] Ferrous Sulfate 325 mg PO WITHBREAKFAST 04/05/15 [History] Pantoprazole [ProTONIX] 40 mg PO ACBREAKFAST 04/05/15 [History] Glimepiride 1 mg PO WITHBREAKFAST 10/20/16 [History] Albuterol/Ipratropium [DuoNeb 3.0-0.5 MG/3 ML] 3 ml NEB QIDRT PRN #120 neb 12/08 [Rx] Escitalopram [Lexapro] 10 mg PO DAILY #30 tablet 12/08/16 [Rx] Glucagon HCl 1 mg IM ASDIRECTED PRN 12/11/16 [History] Magnesium Hydroxide [Milk of Magnesia] 10 ml PO DAILY PRN 12/11/16 [History] Potassium Chloride [Klor-Con 10] 10 meq PO TID 12/11/16 [History] Insulin Aspart [NovoLOG] 8 unit SUBCUT TIDAC #1 pen 12/15/16 [Rx] Insulin Detemir [Levemir] 15 unit SUBCUT BEDTIME #1 pen 12/15/16 [Rx] LORazepam [Ativan] 0.5 mg PO ASDIRECTED PRN 01/04/17 [History] Furosemide [Lasix] 20 mg PO DAILY #8 tablet 01/13/17 [Rx] Furosemide [Lasix] 40 mg PO DAILY #30 tablet 01/13/17 [Rx] Lisinopril [Prinivil] 5 mg PO DAILY #30 tablet 01/13/17 [Rx] Prednisone [IJD: Prednisone] 10 mg PO DAILY #30 tab 01/13/17 [Rx] Prednisone [IJP: Prednisone] 10 mg PO DAILY #19 tab 01/13/17 [Rx] Past Medical History HEENT History: Reports: Hard of hearing, Impaired vision Other HEENT History: wears glasses Cardiovascular History: Reports: CAD, Heart Failure, High cholesterol, Hypertension Respiratory History: Reports: Asthma, COPD Gastrointestinal History: Reports: GERD, GI bleed Genitourinary History: Reports: BPH, Prostate disorder Other Genitourinary History: has indwelling catheter Musculoskeletal History: Reports: Osteoarthritis Neurological History: Reports: Neuropathy, peripheral Psychiatric History: Reports: None Endocrine/Metabolic History: Reports: Diabetes, type II, Obesity/BMI 30+ Hematologic History: Reports: Anemia Immunologic History: Reports: None Oncologic (Cancer) History: Reports: Prostate Dermatologic History: Reports: None Other Dermatologic History: Pressure ulcer to right heel - Infectious Disease History Infectious Disease History: Reports: Chicken pox, Measles, Mumps - Past Surgical History Head Surgeries/Procedures: Reports: None Male Surgical History: Reports: TURP-Transurethral resection of prostate Musculoskeletal Surgical History: Reports: Hip replacement, Shoulder surgery Other Musculoskeletal Surgeries/Procedures:: 2 new hips Social & Family History - Family History Family Medical History: Noncontributory - Tobacco Use Smoking Status *Q: Former Smoker Years of Tobacco use: 40 Packs/Tins Daily: 1 Used Tobacco, but Quit: Yes Month Tobacco Last Used: November Second Hand Smoke Exposure: No - Caffeine Use Caffeine Use: Reports: Coffee Other Caffeine Use: 2 or more - Alcohol Use Days Per Week of Alcohol Use: 1 Number of Drinks Per Day: 1 Total Drinks Per Week: 1 - Recreational Drug Use Recreational Drug Use: No - Living Situation & Occupation Living situation: Reports: , alone Occupation: retired ED ROS GENERAL - Review of Systems Review Of Systems: ROS reveals no pertinent complaints other than HPI. ED EXAM, GENERAL - Physical Exam Exam: See Below Exam Limited By: No limitations General Appearance: alert, no apparent distress, other (frail, elderly, and chronically ill appearing) Eye Exam: bilateral eye: normal inspection Ears: hearing grossly normal Nose: normal inspection Throat/Mouth: Normal voice, No airway compromise Head: atraumatic, normocephalic Neck: normal inspection, supple, non-tender, full range of motion Respiratory/Chest: no respiratory distress, no accessory muscle use, decreased breath sounds, rales Cardiovascular: irregularly irregular GI/Abdominal: normal bowel sounds, soft, non tender, no organomegaly, no distention, no abnormal bruit Extremities: normal range of motion, non-tender, pedal edema (chronic +3 lower ext. edema) Neurological: alert, oriented (to person and place), CN II-XII intact, normal cognition, no motor/sensory deficits Psychiatric: normal mood Skin Exam: Warm, Dry, No rash EKG INTERPRETATION EKG Date: 02/03/17 Time: 10:38 Rhythm: a-fib Rate (beats/min): 115 P-wave: absent QRS: other (LAFB) ST-T: normal QT: normal Comparison: no change Course - Vital Signs Last Recorded V/S: Last Vital Signs Temp 37.0 C 02/03/17 09:15 Pulse 118 H 02/03/17 09:15 Resp 25 H 02/03/17 09:15 BP 90/40 L 02/03/17 09:15 Pulse Ox 88 L 02/03/17 09:15 - Orders/Labs/Meds Orders: Active Orders 24 hr Category Date Time Status EKG 12 Lead [EKG Documentation Completion] [] STAT Care 02/03/17 10:21 Active Overnight Pulse Oximetry [RC] Click To Edit Care 02/03/17 10:22 Active Peripheral IV Care [RC] . DIRECTED Care 02/03/17 10:22 Active CULTURE BLOOD [BC] Stat Lab 02/03/17 11:03 Received CULTURE BLOOD [BC] Stat Lab 02/03/17 11:08 Received CULTURE URINE [RM] Stat Lab 02/03/17 10:39 Received Sodium Chloride 0.9% [Saline Flush] Med 02/03/17 10:20 Active 10 ml FLUSH ASDIRECTED PRN Blood Culture x2 Reflex Set [OM.PC] Stat Oth 02/03/17 10:52 Ordered Peripheral IV Insertion Adult [OM.PC] Stat Oth 02/03/17 10:20 Ordered Pulse Oximetry Continuous Monitoring [OM.PC] Routine Oth 02/03/17 10:22 Ordered RT Supplemental Oxygen Titration [RESPCARE] Stat Oth 02/03/17 10:22 Active Medication Orders Sodium Chloride (Saline Flush) 10 ml FLUSH ASDIRECTED PRN PRN Reason: Keep Vein Open Labs: Laboratory Tests 02/03/17 02/03/17 02/03/17 Range/Units 10:30 10:30 10:39 WBC 14.6 H (5.0-10.0) 10^3/uL RBC 3.90 L (4.6-6.2) 10^6/uL Hgb 10.8 L (14.0-18.0) g/dL Hct 35.3 L (40.0-54.0) % MCV 90.5 (80-100) fL MCH 27.7 (27.0-34.0) pg MCHC 30.6 L (33.0-35.0) g/dL Plt Count 256 (150-450) 10^3/uL Neut % (Auto) 84.8 H (42.2-75.2) % Lymph % (Auto) 8.3 L (20.5-50.1) % [place] % (Auto) 6.3 (2-8) % Eos % (Auto) 0.4 L (1.0-3.0) % Baso % (Auto) 0.2 (0.0-1.0) % Sodium 140 (135-145) mmol/L Potassium 3.2 L (3.6-5.0) mmol/L Chloride 96 L (101-111) mmol/L Carbon Dioxide 34.0 H (21.0-31.0) mmol/L Anion Gap 13.2 BUN 24 H (7-18) mg/dL Creatinine 1.2 (0.6-1.3) mg/dL Est Cr Clr Drug Dosing 41.86 mL/min Estimated GFR (MDRD) 57 BUN/Creatinine Ratio 20.00 Glucose 62 L (74-105) mg/dL Lactic Acid (0.5-2.2) mmol/L Calcium 8.8 (8.4-10.2) mg/dl Total Bilirubin 0.4 (0.2-1.0) mg/dL AST 25 (10-42) IU/L ALT 16 (10-60) IU/L Alkaline Phosphatase 61 (42-121) IU/L B-Natriuretic Peptide 244 H (0-100) pg/ml Total Protein 6.2 L (6.7-8.2) g/dl Albumin 2.7 L (3.2-5.5) g/dl Globulin 3.5 Albumin/Globulin Ratio 0.77 Urine Color Light yellow (YELLOW) Urine Appearance Clear (CLEAR) Urine pH 5.5 (5.0-9.0) Ur Specific [place] <= 1.005 (1.005-1.030) Urine Protein 30 H (NEGATIVE) Urine Glucose (UA) Negative (NEGATIVE) Urine Ketones Negative (NEGATIVE) Urine Occult Blood Large H (NEGATIVE) Urine Nitrite Negative (NEGATIVE) Urine Bilirubin Negative (NEGATIVE) Urine Urobilinogen 0.2 (0.2-1.0) mg/dL Ur Leukocyte Esterase Large H (NEGATIVE) Urine RBC 40-50 H /HPF Urine WBC 20-30 H (0-5/HPF) /HPF Ur Epithelial Cells Rare /HPF Urine Bacteria Moderate H (0-FEW/HPF) /HPF 04/04/17 Range/Units 11:03 WBC (5.0-10.0) 10^3/uL RBC (4.6-6.2) 10^6/uL Hgb (14.0-18.0) g/dL Hct (40.0-54.0) % MCV (80-100) fL MCH (27.0-34.0) pg MCHC (33.0-35.0) g/dL Plt Count (150-450) 10^3/uL Neut % (Auto) (42.2-75.2) % Lymph % (Auto) (20.5-50.1) % [place] % (Auto) (2-8) % Eos % (Auto) (1.0-3.0) % Baso % (Auto) (0.0-1.0) % Sodium (135-145) mmol/L Potassium (3.6-5.0) mmol/L Chloride (101-111) mmol/L Carbon Dioxide (21.0-31.0) mmol/L Anion Gap BUN (7-18) mg/dL Creatinine (0.6-1.3) mg/dL Est Cr Clr Drug Dosing mL/min Estimated GFR (MDRD) BUN/Creatinine Ratio Glucose (74-105) mg/dL Lactic Acid 1.8 (0.5-2.2) mmol/L Calcium (8.4-10.2) mg/dl Total Bilirubin (0.2-1.0) mg/dL AST (10-42) IU/L ALT (10-60) IU/L Alkaline Phosphatase (42-121) IU/L B-Natriuretic Peptide (0-100) pg/ml Total Protein (6.7-8.2) g/dl Albumin (3.2-5.5) g/dl Globulin Albumin/Globulin Ratio Urine Color (YELLOW) Urine Appearance (CLEAR) Urine pH (5.0-9.0) Ur Specific [place] (1.005-1.030) Urine Protein (NEGATIVE) Urine Glucose (UA) (NEGATIVE) Urine Ketones (NEGATIVE) Urine Occult Blood (NEGATIVE) Urine Nitrite (NEGATIVE) Urine Bilirubin (NEGATIVE) Urine Urobilinogen (0.2-1.0) mg/dL Ur Leukocyte Esterase (NEGATIVE) Urine RBC /HPF Urine WBC (0-5/HPF) /HPF Ur Epithelial Cells /HPF Urine Bacteria (0-FEW/HPF) /HPF Meds: Medications Generic Name Dose Route Start Last Admin Trade Name Freq PRN Reason Stop Dose Admin Sodium Chloride 10 ml 02/03/17 10:20 Saline Flush FLUSH ASDIRECTED PRN Keep Vein Open Discontinued Medications Generic Name Dose Route Start Last Admin Trade Name Raiza PRN Reason Stop Dose Admin Dextrose/Water 25 ml 02/03/17 12:23 02/03/17 12:28 Dextrose 50% In Water IVPUSH 02/03/17 12:24 25 ml ONETIME ONE Administration Levofloxacin/Dextrose 500 mg/ 100 mls @ 100 mls/hr 02/03/17 11:32 02/03/17 12 :28 Premix IV 02/03/17 12:31 100 mls/hr ONETIME ONE Administration Lidocaine HCl 10 ml 02/03/17 09:46 02/03/17 09:52 Xylocaine 2% Jelly MUCMEM 02/03/17 09:47 10 ml ONETIME ONE Administration - Radiology Interpretation Free Text/Narrative:: CXR: abnormal, but unchanged from prior per Rad. report. CT Results Date: 02/03/17 Departure - Departure Time of Disposition: 12:36 (admit to Dr. Rodriguez) Disposition: Admitted As Inpatient 64 Condition: poor Clinical Impression: Hypotension, Low blood pressure, Personal history of chronic obstructive pulmonary disease UTI (urinary tract infection) due to urinary indwelling Pichardo catheter Qualifiers: Indwelling urinary catheter type: indwelling urethral catheter Encounter type: initial encounter Qualified Code(s): T83.511A - Infection and inflammatory reaction due to indwelling urethral catheter, initial encounter; N39.0 - Urinary tract infection, site not specified Congestive heart failure Qualifiers: Congestive heart failure type: unspecified congestive heart failure type Congestive heart failure chronicity: chronic Qualified Code(s): I50.9 - Heart failure, unspecified Forms: ED Department Discharge - My Orders Last 24 Hours: My Active Orders 02/03/17 10:20 Sodium Chloride 0.9% [Saline Flush] 10 ml FLUSH ASDIRECTED PRN Peripheral IV Insertion Adult [OM.PC] Stat 02/03/17 10:21 EKG 12 Lead [EKG Documentation Completion] [RC] STAT 02/03/17 10:22 Overnight Pulse Oximetry [RC] Click To Edit Peripheral IV Care [RC] . DIRECTED Pulse Oximetry Continuous Monitoring [OM.PC] Routine RT Supplemental Oxygen Titration [RESPCARE] Stat 02/03/17 10:39 CULTURE URINE [RM] Stat 02/03/17 10:52 Blood Culture x2 Reflex Set [OM.PC] Stat 02/03/17 11:03 CULTURE BLOOD [BC] Stat 02/03/17 11:08 CULTURE BLOOD [BC] Stat - Assessment/Plan Last 24 Hours: My Active Orders 02/03/17 10:20 Sodium Chloride 0.9% [Saline Flush] 10 ml FLUSH ASDIRECTED PRN Peripheral IV Insertion Adult [OM.PC] Stat 02/03/17 10:21 EKG 12 Lead [EKG Documentation Completion] [RC] STAT 02/03/17 10:22 Overnight Pulse Oximetry [RC] Click To Edit Peripheral IV Care [RC] . DIRECTED Pulse Oximetry Continuous Monitoring [OM.PC] Routine RT Supplemental Oxygen Titration [RESPCARE] Stat 02/03/17 10:39 CULTURE URINE [RM] Stat 02/03/17 10:52 Blood Culture x2 Reflex Set [OM.PC] Stat 02/03/17 11:03 CULTURE BLOOD [BC] Stat 02/03/17 11:08 CULTURE BLOOD [BC] Stat
[~2017-02-03 10:04] MED LIST: Lidocaine 2% Jelly 10 ML Urojet MUCMEM ONE
[2017-02-03] MEDS ORDERED: Sodium Chloride 0.9% 10 ML Syringe FLUSH PRN (10:20)
--- NOTE | 2017-02-03 11:12 | CR ---
CLINICAL HISTORY: 86-year-old hypotensive hypoxic male with clinical "edema". INTERPRETATION: Abnormal. Persistent (reproducible) asymmetric dense masslike consolidation right lower lobe that was evident on and 12 January film. Differential consideration includes subpulmonic pleural effusion with underl roni atelectasis or pneumonic infiltrate. Chronic poor inspiratory effort, cardiomegaly and pulmonary venous congestion but upper lobes remain relatively clear this patient with bibasilar pleural effusions. No pneumothorax. NOTE: Unenhanced CT scan chest may be helpful. Incidentally demonstrated evidence chronic rotator cuff damage and arthritis both shoulders. CONCLUSION: Abnormal but relatively unchanged since and 12 January 2017 films.
[2017-02-03] MEDS ORDERED: Levofloxacin/Dextrose 5%-Water 500 MG in Premix Bag 1 BAG IV ONE (11:32)
[2017-02-03] MEDS ORDERED: 50% Dextrose in Water 50 ML Syringe IVPUSH ONE (12:23)
[2017-02-03] MEDS ORDERED: Morphine 2 MG/ML Syringe IVPUSH PRN (13:33)
[2017-02-03] MEDS ORDERED: Polyethylene Glycol 3350 Powder 17 GM Packet PO PRN (13:33)
[2017-02-03] MEDS ORDERED: Docusate Sodium 100 MG Cap PO PRN (13:33)
[2017-02-03] MEDS ORDERED: Ondansetron 4 MG/2 ML SDV IVPUSH PRN (13:33)
[2017-02-03] MEDS ORDERED: Potassium Chloride 10 MEQ Tab.ER PO ONE (13:51)
[2017-02-03] MEDS ORDERED: Heparin Sodium 5,000 Units/ML Vial SUBCUT SCH (14:00)
[2017-02-03] MEDS ORDERED: Sodium Chloride 0.9% 500 ML IV ONE (14:00)
--- NOTE | 2017-02-03 14:01 | PCM.HP ---
H&P History of Present Illness - General Date of Service: 02/03/17 Admit Problem/Dx: Admission Diagnosis/Problem Admission Diagnosis/Problem Sepsis due to urinary tract infection Source of Information: Patient History Limitations: Reports: No limitations - History of Present Illness Initial Comments - Free Text/Narative: 86-year-old male with past medical history of history of COPD, chronic hypoxemic respiratory failure, home oxygen and steroid therapy, CHF, recurrent pleural effusion, recurrent pneumonia presents from correction for having low blood pressure and shortness of breath. When asked the patient about this and for coming to the hospital he was not able to tell. He seems somewhat confused. he was requiring higher dose of nasal oxygen to keep his saturation above 90 and according to correction staff. He admits having worsening cough for the last 2 days. He stated that he has been urinating more than usual however he has Pichardo catheter. assisted was trying to change his Pichardo catheter but there were unsuccessful. His Pichardo catheter was changed in the ER today. He had some blood in the urine. in ER his WBC were 14.6. Hemoglobin 10.8. Neutrophils 84.8%. Potassium 3.2. Sodium 140. Creatinine 1.2. Glucose 62. phosphorus 1.3. Magnesium 1.3. BNP 244. Albumin 2.7. UA showed large site esterase and 20-30 WBC and moderate bacteria. chest x-ray showed masslike lesion in the right lower lobe. EKG shows possible A -fib He received Levaquin, D50. CT chest without contrast, urine and blood cultures, IV magnesium, oral phosphorus, IV albumin, vancomycin were ordered. Troponin came back at 3.93. I discussed the patient's case with the son Mio. Also a called [facility] number I was informed by staff there that they are not accepting new patient. I spoke to Dr. Zuniga from [facility] in [place]. He accepted the patient. I discussed options with patient and son Mio and Dr. Wilson. Patient was having clearer mind and understanding the options and prognosis and the old decided to go [place]. Patient will be air lifted to [place]. We'll give normal saline 500 CC as a bolus prior to departure. He was started on Albumin infusion. His Blood pressure improved to 127/97. He received 324 mg of chewable aspirin and heparin bolus of 4820 units then drip of 12 units /kg/h initiated prior to transfer. Benefit and risk were discussed with patient and son Mio. - Related Data Allergies/Adverse Reactions: Allergies Allergy/AdvReac Type Severity Reaction Status Date / Time roflumilast [From Dalires] Allergy Cannot Verified 02/03/17 13:36 Remember theophylline Allergy Cannot Verified 02/03/17 13:36 Remember Home Medications: Home Meds Albuterol [Ventolin HFA] 2 puff INH Q4H PRN 04/27/14 [History] Budesonide [Pulmicort] 0.5 mg IH BID 04/27/14 [History] Cholecalciferol (Vitamin D3) [Vitamin D3] 1,000 units PO DAILY 04/27/14 [History ] Formoterol [Perforomist] 20 mcg NEB BID 04/27/14 [History] Gabapentin [Neurontin] 300 mg PO BEDTIME 04/27/14 [History] Multivitamin [Multivitamins] 1 each PO DAILY 04/27/14 [History] Nitroglycerin [Nitrostat] 0.4 mg SL ASDIRECTED PRN 04/27/14 [History] Simvastatin [Zocor] 40 mg PO BEDTIME 04/27/14 [History] Acetaminophen [Tylenol] 650 mg PO Q4HR PRN 04/05/15 [History] Ferrous Sulfate 325 mg PO WITHBREAKFAST 04/05/15 [History] Pantoprazole [ProTONIX] 40 mg PO ACBREAKFAST 04/05/15 [History] Glimepiride 1 mg PO WITHBREAKFAST 10/20/16 [History] Albuterol/Ipratropium [DuoNeb 3.0-0.5 MG/3 ML] 3 ml NEB QIDRT PRN #120 neb 12/08 [Rx] Glucagon HCl 1 mg IM ASDIRECTED PRN 12/11/16 [History] Magnesium Hydroxide [Milk of Magnesia] 10 ml PO DAILY PRN 12/11/16 [History] Potassium Chloride [Klor-Con 10] 10 meq PO TID 12/11/16 [History] Insulin Aspart [NovoLOG] 8 unit SUBCUT TIDAC #1 pen 12/15/16 [Rx] Insulin Detemir [Levemir] 15 unit SUBCUT BEDTIME #1 pen 12/15/16 [Rx] LORazepam [Ativan] 0.5 mg PO ASDIRECTED PRN 01/04/17 [History] Furosemide [Lasix] 40 mg PO DAILY #30 tablet 01/13/17 [Rx] Prednisone [IJD: Prednisone] 10 mg PO DAILY #30 tab 01/13/17 [Rx] Aspirin 81 mg PO DAILY 02/03/17 [History] Escitalopram [Lexapro] 10 mg PO DAILY 02/03/17 [History] Furosemide [Lasix] 20 mg PO .MO,TH 02/03/17 [History] Whey Protein/Arginine/C/E/Zinc [Arginaid Extra Liquid] 8 oz PO BID 02/03/17 [ History] Past Medical History HEENT History: Reports: Hard of hearing, Impaired vision Other HEENT History: wears glasses Cardiovascular History: Reports: CAD, Heart Failure, High cholesterol, Hypertension Respiratory History: Reports: Asthma, COPD Gastrointestinal History: Reports: GERD, GI bleed Genitourinary History: Reports: BPH, Prostate disorder Other Genitourinary History: has indwelling catheter Musculoskeletal History: Reports: Osteoarthritis Neurological History: Reports: Neuropathy, peripheral Psychiatric History: Reports: None Endocrine/Metabolic History: Reports: Diabetes, type II, Obesity/BMI 30+ Hematologic History: Reports: Anemia Immunologic History: Reports: None Oncologic (Cancer) History: Reports: Prostate Dermatologic History: Reports: None Other Dermatologic History: Pressure ulcer to right heel - Infectious Disease History Infectious Disease History: Reports: Chicken pox, Measles, Mumps - Past Surgical History Head Surgeries/Procedures: Reports: None Male Surgical History: Reports: TURP-Transurethral resection of prostate Musculoskeletal Surgical History: Reports: Hip replacement, Shoulder surgery Other Musculoskeletal Surgeries/Procedures:: 2 new hips Social & Family History - Family History Family Medical History: Noncontributory - Tobacco Use Smoking Status *Q: Former Smoker Years of Tobacco use: 40 Packs/Tins Daily: 1 Used Tobacco, but Quit: Yes Month Tobacco Last Used: November Second Hand Smoke Exposure: No - Caffeine Use Caffeine Use: Reports: Coffee Other Caffeine Use: 2 or more - Alcohol Use Days Per Week of Alcohol Use: 1 Number of Drinks Per Day: 1 Total Drinks Per Week: 1 - Recreational Drug Use Recreational Drug Use: No - Living Situation & Occupation Living situation: Reports: , alone Occupation: retired H&P Review of Systems - Review of Systems: Review Of Systems: See Below General: Reports: malaise, weakness HEENT: Reports: no symptoms Pulmonary: Reports: Shortness of Breath, Cough. Denies: Hemoptysis Cardiovascular: Reports: edema. Denies: chest pain Gastrointestinal: Reports: No symptoms Genitourinary: Reports: no symptoms Musculoskeletal: Reports: no symptoms Skin: Reports: no symptoms Psychiatric: Reports: confusion, homicidal ideation. Denies: hallucinations, hallucinations (auditory) Neurological: Reports: No Symptoms Hematologic/Lymphatic: Reports: no symptoms Immunologic: Reports: no symptoms Exam - Exam Exam: See Below - Vital Signs Vital Signs: Last Vital Signs Temp 37.0 C 02/03/17 13:05 Pulse 112 H 02/03/17 13:05 Resp 24 H 02/03/17 13:05 BP 76/36 L 02/03/17 13:05 Pulse Ox 91 L 02/03/17 13:05 Weight: 80.343 kg - Exam General: alert, oriented (he knew where he is and knows the month but not the year. He seemed to be confused.), mild distress. No: severe distress, sedated, lethargic, obtunded HEENT: Conjunctiva clear, EACs clear, EOMI, Hearing intact, Mucosa moist & pink , Nares patent, Normal nasal septum, Posterior pharynx clear, Pupils equal, Pupils reactive, TMs clear Neck: supple, trachea midline Lungs: Decreased breath sounds (mostly right ), Other (mildy tachypnec ). No: Crackles, Rales, Rhonchi, Stridor, Wheezing Cardiovascular: regular rate, regular rhythm, tachycardia Abdomen: normal bowel sounds, soft. No: organomegaly, peritoneal signs, distention, guarding, rigidity, rebound, tenderness, absent bowel sounds, McBurney's sign, Singh's sign (Male) Exam: No hernia, Deferred Rectal (Males) Exam: Deferred Back Exam: normal inspection, full range of motion. No: CVA tenderness (L), CVA tenderness (R) Extremities: edema (significant bilateral pitting lower extremities edema, right slightly more than left which is scheduled to him), other (right heel ulcer noticed.no signs of infection) Skin: warm, dry. No: rash Neurological: cranial nerves intact, reflexes equal bilateral Neuro Extensive - Mental Status: alert, normal mood/affect Neuro Extensive - Motor, Sensory, Reflexes: CN II-XII intact Psychiatric: alert, normal affect, normal mood - Patient Data Result Diagrams: 02/03/17 10:30 02/03/17 10:30 *Q Meaningful Use (ADM) - VTE *Q VTE Criteria *Q: - Stroke *Q Stroke Criteria *Q: - AMI *Q AMI Criteria *Q: - Problem List (1) Sepsis due to urinary tract infection SNOMED Code(s): 667948193 ICD Code: A41.9 - SEPSIS, UNSPECIFIED ORGANISM; N39.0 - URINARY TRACT INFECTION, SITE NOT SPECIFIED Status: Acute Priority: High Current Visit: Yes (2) Hypomagnesemia SNOMED Code(s): 627026033 ICD Code: E83.42 - HYPOMAGNESEMIA Status: Acute Priority: Medium Current Visit: Yes (3) Hypophosphatemia SNOMED Code(s): 1996579 ICD Code: E83.39 - OTHER DISORDERS OF PHOSPHORUS METABOLISM Status: Acute Priority: Medium Current Visit: Yes (4) Congestive heart failure SNOMED Code(s): 32055668 ICD Code: I50.9 - HEART FAILURE, UNSPECIFIED Status: Chronic Current Visit: Yes Qualifiers: Congestive heart failure type: unspecified congestive heart failure type Congestive heart failure chronicity: chronic Qualified Code(s): I50.9 - Heart failure, unspecified (5) Hypotension, Low blood pressure SNOMED Code(s): 41368417 ICD Code: I95.9 - HYPOTENSION, UNSPECIFIED Status: Chronic Current Visit : Yes (6) SIMOAN (acute kidney injury) SNOMED Code(s): 67031166 ICD Code: N17.9 - ACUTE KIDNEY FAILURE, UNSPECIFIED Status: Acute Current Visit: No (7) Heel ulcer SNOMED Code(s): 687984220 ICD Code: L97.409 - NON-PRS CHRONIC ULCER OF UNSP HEEL AND MIDFOOT W UNSP SEVERT Status: Chronic Current Visit: No (8) Hypokalemia SNOMED Code(s): 19750662 ICD Code: E87.6 - HYPOKALEMIA Status: Acute Current Visit: No (9) Weakness SNOMED Code(s): 74804382 ICD Code: R53.1 - WEAKNESS Status: Chronic Priority: Medium Current Visit: No (10) COPD, Severe chronic obstructive pulmonary disease SNOMED Code(s): 302339348 ICD Code: J44.9 - CHRONIC OBSTRUCTIVE PULMONARY DISEASE, UNSPECIFIED Status : Chronic Priority: Medium Current Visit: No (11) Chronic indwelling Pichardo catheter SNOMED Code(s): 378687334 ICD Code: Z92.89 - PERSONAL HISTORY OF OTHER MEDICAL TREATMENT Status: Acute Current Visit: Yes Problem List Initiated/Reviewed/Updated: Yes Orders Last 24hrs: Active Orders 24 hr Category Date Time Status Patient Status [ADT] Routine ADT 02/03/17 13:33 Active Antiembolic Devices [RC] PER UNIT ROUTINE Care 02/03/17 13:42 Active Blood Glucose Check, Bedside [RC] QIDACANDBED Care 02/03/17 13:33 Active Height and Weight [RC] DAILY Care 02/03/17 13:33 Active Intake and Output [RC] Q6H Care 02/03/17 13:37 Active Oxygen Therapy [RC] PRN Care 02/03/17 13:33 Active VTE/DVT Education [RC] PER UNIT ROUTINE Care 02/03/17 13:33 Active Vital Signs [RC] Q4H Care 02/03/17 13:33 Active Consult to Pharmacy [CONS] Routine Cons 02/03/17 13:47 Active OT Evaluation and Treatment [CONS] Routine Cons 02/03/17 13:33 Active PT Evaluation and Treatment [CONS] Routine Cons 02/03/17 13:33 Active 2 Gram Sodium Diet [DIET] Diet 02/03/17 Breakfast Active Consistent Carbohydrate Diet [DIET] Diet 02/03/17 Breakfast Active Chest wo Cont [CT] Routine Exams 02/03/17 13:16 Ordered B-TYPE NATRIURETIC PEPTIDE,BNP [CHEM] AM Lab 02/04/17 05:11 Ordered BASIC METABOLIC PANEL,BMP [CHEM] AM Lab 02/04/17 05:11 Ordered CBC WITH AUTO DIFF [HEME] AM Lab 02/04/17 05:11 Ordered MAGNESIUM [CHEM] Routine Lab 02/03/17 13:33 Ordered PHOSPHORUS [CHEM] Routine Lab 02/03/17 13:33 Ordered TROPONIN I [CHEM] AM Lab 02/04/17 05:11 Ordered TROPONIN I [CHEM] Stat Lab 02/03/17 13:55 Ordered Albumin 25% [Flexbumin 25%] Med 02/03/17 14:00 Active 12.5 gm in 50 ml IV Q8H Docusate Sodium [Colace] Med 02/03/17 13:33 Ordered 100 mg PO BID PRN Heparin Sodium Med 02/03/17 14:00 Ordered 5,000 units SUBCUT Q8HR Levofloxacin/Dextrose 5%-Water [Levaquin in D5W 500 MG/ Med 02/04/17 13:30 Ordered 100 ML] 500 mg Premix Bag 1 bag IV Q24H Morphine Med 02/03/17 13:33 Ordered 2 mg IVPUSH Q2H PRN Ondansetron [Zofran] Med 02/03/17 13:33 Ordered 4 mg IVPUSH Q6H PRN Polyethylene Glycol 3350 [MiraLAX] Med 02/03/17 13:33 Ordered 17 gm PO DAILY PRN Potassium Chloride [Klor-Con 10] Med 02/03/17 13:51 Once 40 meq PO ONETIME ONE Sodium Chloride 0.9% [Normal Saline] 500 ml Med 02/03/17 14:00 Ordered IV .BOLUS Vancomycin 1.25 gm Med 02/03/17 13:47 Ordered Sodium Chloride 0.9% [Normal Saline] 250 ml IV ONETIME Antiembolic Hose [OM.PC] Per Unit Routine Oth 02/03/17 13:40 Ordered Resuscitation Status Routine Resus Stat 02/03/17 13:33 Ordered Medication Orders Docusate Sodium (Colace) 100 mg PO BID PRN PRN Reason: Constipation Heparin Sodium (Porcine) (Heparin Sodium) 5,000 units SUBCUT Q8HR [place] Levofloxacin/Dextrose 500 mg/ (Premix) 100 mls @ 100 mls/hr IV Q24H [place] Vancomycin HCl 1.25 gm/ Sodium (Chloride) 250 mls @ 167 mls/hr IV ONETIME ONE Stop: 02/03/17 15:29 Albumin Human (Flexbumin 25%) 12.5 gm in 50 mls @ 100 mls/hr IV Q8H [place] Stop: 02/05/17 06:29 Sodium Chloride (Normal Saline) 500 mls @ 500 mls/hr IV .BOLUS [place] Morphine Sulfate (Morphine) 2 mg IVPUSH Q2H PRN PRN Reason: Pain (severe 7-10) Ondansetron HCl (Zofran) 4 mg IVPUSH Q6H PRN PRN Reason: Nausea/Vomiting Polyethylene Glycol (Miralax) 17 gm PO DAILY PRN PRN Reason: Constipation Potassium Chloride (Klor-Con 10) 40 meq PO ONETIME ONE Stop: 02/03/17 13:52 Sodium Chloride (Saline Flush) 10 ml FLUSH ASDIRECTED PRN PRN Reason: Keep Vein Open Assessment/Plan Comment:: sepsis, most likely due to UTI Levaquin and vancomycin Pichardo catheter was changed on admission he has chronic low blood pressure and usually tolerates it well. Awaiting blood culture and urine culture results he has congestive heart failure and significant lower extremity edema so I don' t think he needs IV fluid bolus. -If urine culture and blood culture doesn't improve gram-positive bacteria or has no growth in 2 days then will stop compromising hypertension, chronic he has chronic low blood pressure and usually tolerates it well. Shortness of breath with cough Possible CPD exacerbation Bronchodilator Prednisone Incentive spiromerty hypoglycemia blood glucose on admission 62 and blood glucose level was corrected He received 25 mils of D50 in the ER apply hypoglycemic protocol as needed hypokalemia Replace orally -recheck potassium level in the morning Hypomagnesemia -Magnesium 4 mg IV once -recheck magnesium level in the morning Hypophosphatemia -Neutro-phos Orally -recheck phosphorus in the morning Masslike lung lesion -We'll do CAT scan a chest without contrast chronic congestive heart failure Resume his diuretics and cardiac room this medications diabetes mellitus type 2 -Hold home anti-glycemic medications -sliding scale insulin generalized weakness, chronic PT/OT evaluation and treatment Significant lower extremity edema OT was consulted for compression stockings heparin for DVT prophylaxis Patient is DNR Troponin came back at 3.93. I discussed the patient's case with the son Mio. Also a called [facility] number I was informed by staff there that they are not accepting new patient. I spoke to Dr. Zuniga from [facility] in [place]. He accepted the patient. I discussed options with patient and son Mio and Dr. Wilson. Patient was having clearer mind and understanding the options and prognosis and the old decided to go [place]. Patient will be air lifted to [place]. We'll give normal saline 500 CC as a bolus prior to departure. He was started on Albumin infusion. His Blood pressure improved to 127/97. He received 324 mg of chewable aspirin and heparin bolus of 4820 units then drip of 12 units /kg/h initiated prior to transfer. Benefit and risk were discussed with patient and son Mio. 60 minutes of critical care time was spent
[2017-02-03] MEDS ORDERED: Magnesium Sulfate/Water 100 ML IV ONE (14:18)
[2017-02-03] MEDS ORDERED: Phosphorus #1 250 MG Tab PO SCH (14:30)
[2017-02-03] MEDS: Albumin 25% 12.5 GM/50 ML BAG IV SCH ×2 (15:21→16:18)
[2017-02-03] MEDS ORDERED: Aspirin 81 MG Tab.Chew PO ONE (15:51)
[2017-02-03] MEDS ORDERED: Heparin Sodium/D5W 25,000 UNITS/500 ML BAG IV SCH ×2 (16:15→16:30)
[2017-02-03] MEDS ORDERED: Heparin Sodium 5,000 Units/ML Vial IV ONE (16:30)
[2017-02-03] MEDS ORDERED: Insulin Aspart 100 Units/ML 3 ML Pen SUBCUT SCH (17:00)
[2017-02-03 19:12] VITALS: BP 112/97
--- NOTE | 2017-02-04 08:14 | CT ---
CLINICAL HISTORY: 86-year-old diabetic male ex-smoker with persistent cough, dyspnea/hypoxia and mas slike infiltrate/atelectasis right lower lobe (hypotensive) on recent chest radiograph. SCAN TECHNIQUE: Volume acquisition of data from an unenhanced CT scan of the chest obtained with the patient lying supine on the Siemens multislice CT scanner [place], [place]. All data archived in the PACS system for storage, reformatting and study. INTERPRETATION: 1. Chronic asymmetric elevation right hemidiaphragm with hepatic flexure of the colon interposed otis eath the diaphragm and right lobe of the liver. 2. Extensive, chronic, posterior segment right lower lobe atelectasis and/or pneumonic infiltrates ( aspiration? Bronchiectasis?) since previous CT scan chest 01 December 2016. 3. Less pronounced atelectasis and/or bronchiectasis contralateral left lung base since Nov. [employer] codi mild cardiomegaly and extensive coronary artery calcifications. Dense calcifications arch of the aorta but no sign of aneurysm. No pericardial effusion, alveolar edema or effusions. 5. Peribronchial "cuffing" and numerous lung cysts bilaterally presumably compromising oxygenation ( 02 exchange). CONCLUSION: Severe COPD. Probable aspiration pneumonia right lower lobe. No sign of heart failure or malignancy. Bibasilar atelectasis.
[2017-02-04] MEDS ORDERED: Levofloxacin/Dextrose 5%-Water 500 MG in Premix Bag 1 BAG IV SCH (13:00)
--- NOTE | 2017-02-06 12:04 | EKG ---
02/03/2017 - ANNA LEI - TIME OF EK hours. I reviewed the EKG and agree with the machine's reading. [facility] /[id number]
== END 2017-02-03 16:52 | DRG 872 ==
LOC: DL.ED 10:04 → UNDOADMIN 12:58 → DL.MS 12:58
PROVIDERS: ADMIT Family Medicine; ATTEND Family Medicine
DX: T83.511A Infection and inflammatory reaction due to indwelling urethral catheter, initial encounter (principal); N39.0 Urinary tract infection, site not specified; I50.9 Heart failure, unspecified; I95.9 Hypotension, unspecified; J44.9 Chronic obstructive pulmonary disease, unspecified; Z96.0 Presence of urogenital implants
CPT/HCPCS: 36415; 71010; 80053; 81001; 83605; 83735; 83880; 84100; 84484; 85025; 87040 ×2; 87086; 93005 ×2; 93010 ×2; 96365; 96375; 99285; J1956; 71250; 82962; 85730; 87077; 87088; 87186; 99284; A9270-GY; J1644; J7040; J7060; P9047